=== PATIENT | female | born 1995 | race Caucasian/White ===

== ENCOUNTER → 2020-01-08 11:53 | Outpatient (CLI) | payer OTHER, MEDICAID, SELFPAY ==
[2020-01-08 13:29] LABS: HCG Quantitative /Beta subunit 19128 mIU/mL
== END ==
PROVIDERS: PCP Obstetrics & Gynecology; Referring Provider Obstetrics & Gynecology; Visit Provider Obstetrics & Gynecology
DX: O36.80X0 Pregnancy with inconclusive fetal viability, not applicable or unspecified (principal)
CPT/HCPCS: 36415; 84702

== ENCOUNTER → 2020-01-10 14:26 | Outpatient (CLI) | payer OTHER, MEDICAID, SELFPAY ==
[2020-01-10 15:51] LABS: HCG Quantitative /Beta subunit 27029 mIU/mL
== END ==
PROVIDERS: PCP Obstetrics & Gynecology; Referring Provider Obstetrics & Gynecology; Visit Provider Obstetrics & Gynecology
DX: O36.80X0 Pregnancy with inconclusive fetal viability, not applicable or unspecified (principal)
CPT/HCPCS: 36415; 84702

== ENCOUNTER → 2020-01-13 10:48 | Outpatient (CLI) | payer OTHER, MEDICAID, SELFPAY ==
--- NOTE | 2020-01-13 10:52 | DI.US.S_ITS ---
PROCEDURE: US OB <= 14 WEEKS FETUS INDICATIONS: DATES OUTSIDE/PRIOR DATING DATA: Last menstrual period (LMP): 11/23/19. LMP-based estimated date of delivery (NEGRO): 08/29/20. First dating scan (date and location): Postop chest, 01/08/20. Estimated date of delivery (NEGRO) from first dating scan: 08/29/20. TECHNIQUE: Real-time scanning was performed of the fetus and maternal pelvic organs, with image documentation. Endovaginal scanning was also performed to better visualize the fetus and maternal ovaries. COMPARISON: [facility], , OB <= 14 WEEKS FETUS, 01/08/2020, 11:38. FINDINGS: Embryo: A single live intrauterine is seen. The measured heart rate is 133 beats per minute. The crown-rump length measures 0.9 cm, corresponding to an estimated gestational age of 6 weeks 6 days. It is too early for detailed anatomic assessment. By visual inspection, the amount of amniotic fluid is within normal limits. No significant findings of subchorionic/perigestational hemorrhage are seen. Measurement variability in dating: +/- 4 weeks by LMP, +/- 7 days by mean sac diameter (use before 6 weeks gestation if crown-rump length not able to be measured), +/- 5 days by crown-rump length (up to 8 weeks 6 days gestation), +/- 7 days by crown-rump length (up to 13 weeks 6 days gestation). Maternal organs: Ovaries are not seen. Limited images through the kidneys demonstrate no hydronephrosis. IMPRESSION: A single live intrauterine is seen. No significant discrepancy is found between the estimated gestational age based on these images and the estimated gestational age based upon the given prior dating. Dictated by: Christiano Nichole M.D. on 01/13/2020 at 10:23 Approved by: Christiano Nichole M.D. on 01/13/2020 at 10:24
== END ==
PROVIDERS: Referring Provider Obstetrics & Gynecology; Visit Provider Obstetrics & Gynecology
DX: O36.80X0 Pregnancy with inconclusive fetal viability, not applicable or unspecified (principal); Z3A.01 Less than 8 weeks gestation of pregnancy
CPT/HCPCS: 76801; 76817

== ENCOUNTER → 2020-01-25 10:32 | Outpatient (CLI) | payer OTHER, MEDICAID, SELFPAY ==
[2020-01-25 15:18] LABS: Urine N gonorrhoeae NOT DETECTED
[2020-01-26 10:00] LABS: Urine Chlamydia DETECTED
== END ==
PROVIDERS: Visit Provider Obstetrics & Gynecology
DX: Z34.81 Encounter for supervision of other normal pregnancy, first trimester (principal); Z3A.09 9 weeks gestation of pregnancy
CPT/HCPCS: 87491; 87591

== ENCOUNTER → 2020-02-23 12:46 | Outpatient (CLI) | payer OTHER, MEDICAID, SELFPAY ==
[2020-02-23 13:53] LABS: Add Manual Diff / Slide Review NO; Basophils Absolute Auto 100 /uL (0-100); Basophils Percent Auto 0.6 % (0-2); Eosinophils Absolute Auto 200 /uL (0-450); Eosinophils Percent Auto 2.5 % (2-4); Hematocrit 37.3 % (36-46); Hemoglobin 13.3 g/dL (12.0-16.0); Lymphocytes Absolute Auto 2000 /uL (1100-4500); Mean Corpuscular HGB Conc 35.6 % (30-36); Mean Corpuscular Hemoglobin 32.7 PG (26-34); Monocytes Absolute Auto 400 /uL (0-900); Monocytes Percent Auto 4.6 % (3-14); Neutrophils Absolute Auto 6400 /uL (1500-7000); Neutrophils Percent Auto 70.3 % (50-75); Platelet Count 347 X10^3/uL (150-400); Red Blood Cell Count 4.05 X10^6/uL (4.0-5.2); Red Cell Distribution Width 12.7 % (11.6-14.8); White Blood Cell Count 9.2 X10^3/uL (4.5-11.0)
[2020-02-25 16:14] LABS: RPR Screen Non Reactive (Non Reactive); Varicella IgG Antibody 2973 index (Immune >165)
[2020-02-25 16:39] LABS: Hepatitis B Surface Antigen NEGATIVE s/c (NEGATIVE)
[2020-02-25 16:40] LABS: Rubella Antibody IgG 15.8 IU/mL (>15)
[2020-02-25 16:52] LABS: HIV 1 & 2 Ab/Ag 4th Gen Combo NEGATIVE (NEGATIVE); Hep C Virus Ab w/Reflex Quant NEGATIVE s/c (NEGATIVE)
== END ==
PROVIDERS: Referring Provider Obstetrics & Gynecology; Visit Provider Obstetrics & Gynecology
DX: O36.80X0 Pregnancy with inconclusive fetal viability, not applicable or unspecified (principal)
CPT/HCPCS: 36415; 80055; 86787; 86803; 86850; 86900; 86901; 87086; 87389

== ENCOUNTER 2020-03-15 10:47 | Emergency (ER) | payer OTHER, MEDICAID, SELFPAY ==
[2020-03-15 10:53] VITALS: BP 130/88; PULSE 75; RESP 15; TEMP 36.6; O2SAT 98; BMI 28.3
--- NOTE | 2020-03-15 11:15 | DI.US.S_ITS ---
PROCEDURE: US OB >= 14 WEEKS FETUS INDICATIONS: RUQ PAIN TECHNIQUE: Real-time scanning was performed of the fetus, with image documentation and biometric measurements. COMPARISON: [facility], , OB >= 14 WEEKS FETUS, 01/25/2020, 10:16. [facility], , OB <= 14 WEEKS FETUS, 01/13/2020, 11:01. FINDINGS: General: A single living intrauterine gestation is present. Presentation: Breech Placenta: Placental position is posterior without evidence of previa. Amniotic fluid index: 8.9 cm, normal range is 5-24 cm. heart rate: 149 beats per minute. Maternal cervical canal: 3.7 cm in length. biometrics: Biparietal diameter: 3.3 cm, 16 weeks 3 days Head circumference: 13.1 cm, 16 weeks 5 days Abdominal circumference: 10.6 cm, 16 weeks 4 days Femur length: 1.9 cm, 15 weeks 6 days Estimated gestational age from initial scan: 16 weeks 1 day Composite gestational age from present scan: 16 weeks 3 days Estimated weight and percentile: 151 g (51st percentile) Other: Please note that a formal anatomic survey was not performed. No gross anatomic abnormalities are evident on the provided images. Anatomic structures are not well seen related to small size of the fetus. The maternal adnexal regions are within normal limits. No adnexal cysts are evident. IMPRESSION: Single live intrauterine at 16 weeks 3 days is concordant with the clinical dates and has demonstrated appropriate interval growth. Dictated by: Oscar Villaseñor M.D. on 03/15/2020 at 11:37 Approved by: Oscar Villaseñor M.D. on 03/15/2020 at 11:39
--- NOTE | 2020-03-15 11:15 | DI.US.S_ITS ---
PROCEDURE: US ABDOMEN LIMITED INDICATIONS: RUQ PAIN TECHNIQUE: Real-time focused scanning was performed of the abdomen, with image documentation. COMPARISON: None. FINDINGS: Portions of the liver appear to be within normal limits. No focal liver lesions are identified. Scattered small nodular densities are identified along the wall of the gallbladder that demonstrate comet tail artifact. Some of these nodular densities are located along the dependent aspect of the gallbladder. No mobile stones are evident. No shadowing stones are evident. There is no intrahepatic or extrahepatic biliary dilatation. The common bile duct measures 5 mm in diameter. Overlying bowel gas obscures evaluation of the pancreas. The right kidney was not adequately evaluated more completely included. IMPRESSION: 1. No evidence of acute cholecystitis. 2. Possible non-shadowing gallstones versus sludge ball versus small polyps within the dependent aspect of the gallbladder. 3. Adenomyomatosis of the gallbladder. Dictated by: Oscar Villaseñor M.D. on 03/15/2020 at 11:35 Approved by: Oscar Villaseñor M.D. on 03/15/2020 at 11:37
[2020-03-15 11:25] LABS: Add Manual Diff / Slide Review NO; Basophils Absolute Auto 0 /uL (0-100); Basophils Percent Auto 0.2 % (0-2); Eosinophils Absolute Auto 200 /uL (0-450); Eosinophils Percent Auto 1.7 % (2-4); Hematocrit 36.2 % (36-46); Hemoglobin 12.9 g/dL (12.0-16.0); Lymphocytes Absolute Auto 1800 /uL (1100-4500); Lymphocytes Percent Auto 17.3 % (25-40); Mean Corpuscular HGB Conc 35.5 % (30-36); Mean Corpuscular Hemoglobin 32.9 PG (26-34); Mean Corpuscular Volume 92.7 fL (80-100); Monocytes Absolute Auto 500 /uL (0-900); Neutrophils Absolute Auto 8000 /uL (1500-7000); Neutrophils Percent Auto 75.8 % (50-75); Platelet Count 378 X10^3/uL (150-400); Red Cell Distribution Width 12.5 % (11.6-14.8); White Blood Cell Count 10.6 X10^3/uL (4.5-11.0)
[2020-03-15 11:32] LABS: Alanine Aminotransferase 13 IU/L (<35); Albumin Globulin Ratio 1.4 (1.0-2.8); Alkaline Phosphatase 41 U/L (38-126); Amylase 69 U/L (30-110); Aspartate Aminotransferase 20 IU/L (14-36); BUN Creatinine Ratio 12.2 (6-22); Bilirubin Total 0.3 mg/dL (0.2-1.3); Blood Urea Nitrogen 5 mg/dL (7-17); Calcium 9.4 mg/dL (8.4-10.2); Carbon Dioxide 21 mmol/L (22-32); Chloride 105 mmol/L (98-107); Estimated Glomerular Filt Rate > 60.0 mL/min (>60); Globulin 2.9 g/dL (1.7-4.1); Glucose 95 mg/dL (70-100); HEMOLYSIS < 15 (0-50); Lipase 40 U/L (23-300); Potassium 3.9 mmol/L (3.4-5.1); Sodium 134 mmol/L (137-145); Total Protein 6.9 g/dL (6.3-8.2)
--- NOTE | 2020-03-15 11:40 | ED_ITS ---
HPI - Abdominal Pain <PEREZ Duggan - Last Filed: 03/15/20 15:18> General Chief Complaint: Abdominal Pain Stated Complaint: sharp abdominal pains Time Seen by Provider: 03/15/20 11:05 Source: patient Mode of arrival: Ambulatory Limitations: no limitations History of Present Illness HPI narrative: The patient is a 25-year-old female former smoker approximately 16 weeks who presents with her spouse for chief complaint of waking up with abdominal pain today. She states that she felt fine last night, woke up with some epigastric abdominal pain, that radiates down over her stomach. She states she vomited multiple times. She has not taken anything to feel better. She denies any fevers cough or congestion. She denies any dysuria urgency or frequency or vaginal discharge. She spoke with her OB provider, Dr Szymanski who referred her to the emergency department for possible gallbladder evaluation. She did eat some fruit this morning. Related Data Home Medications Medication Instructions Recorded Confirmed prenat.vits,noel,[id number] 1 tab PO DAILY 01/08/20 01/08/20 Previous Rx's Medication Instructions Recorded ondansetron 4 mg PO Q6H PRN #20 tab 03/15/20 Allergies Allergy/AdvReac Type Severity Reaction Status Date / Time No Known Drug Allergies Allergy Unverified 01/19/20 11:09 Review of Systems <PEREZ Duggan - Last Filed: 03/15/20 15:18> Review of Systems Narrative: GENERAL: Denies chills, fatigue, malaise, fever, sweats. HEENT: Denies sinus pain, ear pain, sore throat, difficulty swallowing, dizziness. RESPIRATORY: Denies dyspnea, cough, wheezing, hemoptysis, sputum. CARDIOVASCULAR: Denies chest pain, palpitations, orthopnea, edema, GASTROINTESTINAL: See HPI : Denies dysuria, frequency, incontinence, hematuria, urinary retention. MUSCULOSKELETAL: denies weakness, joint pain, or bony pain SKIN: Denies rash, skin lesions, or other NEUROLOGIC: Denies weakness, headache, numbness, change in speech, confusion, seizures, incoordination. PSYCHIATRIC: No concerning psychosocial issues. 12 point review of systems is negative except for those stated above Patient History <PEREZ Duggan - Last Filed: 03/15/20 15:18> Medical History (Updated 03/15/20 @ 14:34 by PEREZ Duggan) (Acute) ADHD (Chronic) Anxiety (Chronic) Chlamydia (Acute) Depression (Acute) H/O being hospitalized (Acute ~2010) Surgical History (Updated 01/19/20 @ 11:54 by Dottie Dupont RN) H/O wisdom tooth extraction (Acute ~2014) S/P dilation and curettage (Acute ~2015) Family History (Updated 01/19/20 @ 11:49 by Dottie Dupont RN) Father Stroke Alcohol abuse Mother Cancer History of heart disease Hypertension Hyperlipidemia Mental health problem History of miscarriage Breast cancer Depression Anxiety Grandmother Stroke Grandfather Stomach cancer Grandfather Family estrangement Unknown whether patient has any health problems Grandmother Unknown whether patient has any health problems Family/Other Mental health problem Social History marital status: unmarried,living together household members: significant other pets and animals: Yes (Dog) education level: college (working on her Master's Degree: online currently) occupational status: unemployed current occupational exposures/hazards: No special david needs: No Smoking Status: Former smoker Tobacco: How many years used: 1 second hand exposure: No alcohol intake: former (pre- : rare) substance use type: does not use Smoking Status: Former smoker Substance Use Type: does not use Exam <PEREZ Duggan - Last Filed: 03/15/20 15:18> Narrative Exam Narrative: GENERAL: This is a well-nourished, well-developed patient, in no acute distress HEAD: Atraumatic. Normocephalic. No temporal or scalp tenderness. EYES: Pupils equal round and reactive. Extraocular motions intact. No scleral icterus. No injection or drainage. ENT: Nose without bleeding, purulent drainage or septal hematoma. Throat without erythema, tonsillar hypertrophy or exudate. Uvula midline. Airway patent. NECK: Trachea midline. No JVD or lymphadenopathy. Supple, nontender, no meningeal signs. CARDIOVASCULAR: Regular rate and rhythm RESPIRATORY: Clear to auscultation. Breath sounds equal bilaterally. No wheezes, rales, or rhonchi. No cough. No increased respiratory. No accessory muscle use. GASTROINTESTINAL: Abdomen soft, diffusely tender bilateral upper quadrants with no guarding, negative Weir sign, nondistended. No hepato-splenomegaly, or palpable masses. Active bowel sounds all 4 quadrants. EXTREMITIES: No clubbing, cyanosis, or edema. No joint tenderness, effusion, or edema noted. BACK: Nontender without deformity or crepitance. No flank tenderness. NEURO: AOx3. SKIN: No rash or erythema on visible skin Initial Vital Signs Initial Vital Signs: Vital Signs Temperature 97.9 F 03/15/20 10:53 Pulse Rate 75 03/15/20 10:53 Respiratory Rate 15 03/15/20 10:53 Blood Pressure 130/88 03/15/20 10:53 Pulse Oximetry 98 03/15/20 10:53 <Radha Singh DO - Last Filed: 03/15/20 19:22> Initial Vital Signs Initial Vital Signs: Vital Signs Temperature 97.9 F 03/15/20 10:53 Pulse Rate 75 03/15/20 10:53 Respiratory Rate 15 03/15/20 10:53 Blood Pressure 130/88 03/15/20 10:53 Pulse Oximetry 98 03/15/20 10:53 Course <PEREZ Duggan - Last Filed: 03/15/20 15:18> Orders Ordered: ED Orders 03/15/20 11:00 Amylase Stat Complete Blood Count AUTO DIFF Stat Comprehensive Metabolic Panel Stat HCG Quantitative /Beta subunit Stat Lipase Stat 03/15/20 11:15 US OB >= 14 weeks Fetus Stat US abdomen limited Stat 03/15/20 13:30 Urine Microscopic Stat Discontinued Medications Sodium Chloride (Normal Saline 0.9%) 500 mls @ 1,000 mls/hr IV BOLUS ONE Stop: 03/15/20 11:44 Last Infusion: 03/15/20 14:44 Dose: 0 mls/hr Documented by: Admin: 03/15/20 11:58 Dose: 1,000 mls/hr Documented by: DONA Ondansetron HCl (Zofran) 4 mg IV NOW ONE Stop: 03/15/20 11:16 Last Admin: 03/15/20 11:58 Dose: 4 mg Documented by: DONA Vital Signs Vital signs: Vital Signs - 8 hr 03/15/20 12:40 03/15/20 14:39 Pulse Rate 69 73 Respiratory Rate 17 14 Blood Pressure [Left Arm] 120/68 115/71 Pulse Oximetry 100 100 <Radha Singh DO - Last Filed: 03/15/20 19:22> Orders Ordered: ED Orders 03/15/20 11:00 Amylase Stat Complete Blood Count AUTO DIFF Stat Comprehensive Metabolic Panel Stat HCG Quantitative /Beta subunit Stat Lipase Stat 03/15/20 11:15 US OB >= 14 weeks Fetus Stat US abdomen limited Stat 03/15/20 13:30 Urine Microscopic Stat Discontinued Medications Sodium Chloride (Normal Saline 0.9%) 500 mls @ 1,000 mls/hr IV BOLUS ONE Stop: 03/15/20 11:44 Last Infusion: 03/15/20 14:44 Dose: 0 mls/hr Documented by: Admin: 03/15/20 11:58 Dose: 1,000 mls/hr Documented by: DONA Ondansetron HCl (Zofran) 4 mg IV NOW ONE Stop: 03/15/20 11:16 Last Admin: 03/15/20 11:58 Dose: 4 mg Documented by: DONA Vital Signs Vital signs: Vital Signs - 8 hr 03/15/20 12:40 03/15/20 14:39 Pulse Rate 69 73 Respiratory Rate 17 14 Blood Pressure [Left Arm] 120/68 115/71 Pulse Oximetry 100 100 MDM - Abdominal Pain <JOSE ANGEL Duggan - Last Filed: 03/15/20 15:18> Differential Diagnosis Differential diagnosis: Likely abdominal pain and constipation Lab Data Result diagrams: 03/15/20 11:00 03/15/20 11:00 Labs: Lab Results 03/15/20 03/15/20 03/15/20 Range/Units 11:00 11:00 11:00 WBC 10.6 (4.5-11.0) X10^3/uL RBC 3.90 L (4.0-5.2) X10^6/uL Hgb 12.9 (12.0-16.0) g/dL Hct 36.2 (36-46) % MCV 92.7 (80-100) fL MCH 32.9 (26-34) PG MCHC 35.5 (30-36) % RDW 12.5 (11.6-14.8) % Plt Count 378 (150-400) X10^3/uL Neut % (Auto) 75.8 H (50-75) % Lymph % (Auto) 17.3 L (25-40) % Schuyler % (Auto) 5.0 (3-14) % Eos % (Auto) 1.7 L (2-4) % Baso % (Auto) 0.2 (0-2) % Neut # (Auto) 8000 H (9739-2460) /uL Lymph # (Auto) 1800 (4981-7288) /uL Schuyler # (Auto) 500 (0-900) /uL Eos # (Auto) 200 (0-450) /uL Baso # (Auto) 0 (0-100) /uL Sodium 134 L (137-145) mmol/L Potassium 3.9 (3.4-5.1) mmol/L Chloride 105 (98-107) mmol/L Carbon Dioxide 21 L (22-32) mmol/L BUN 5 L (7-17) mg/dL Creatinine 0.41 L (0.52-1.04) mg/dL Estimated GFR > 60.0 (>60) mL/min BUN/Creatinine Ratio 12.2 (6-22) Glucose 95 (70-100) mg/dL Calcium 9.4 (8.4-10.2) mg/dL Total Bilirubin 0.3 (0.2-1.3) mg/dL AST 20 (14-36) IU/L ALT 13 (<35) IU/L Alkaline Phosphatase 41 (38-126) U/L Total Protein 6.9 (6.3-8.2) g/dL Albumin 4.0 (3.5-5.0) g/dL Globulin 2.9 (1.7-4.1) g/dL Albumin/Globulin Ratio 1.4 (1.0-2.8) Amylase 69 (30-110) U/L Lipase 40 (23-300) U/L HCG, Quant 26831 mIU/mL Urine RBC (0-5/HPF) Urine WBC (0-5/HPF) Urine Bacteria (None) Urine Mucus (Negative) Ur Culture Indicated? 03/15/20 Range/Units 13:30 WBC (4.5-11.0) X10^3/uL RBC (4.0-5.2) X10^6/uL Hgb (12.0-16.0) g/dL Hct (36-46) % MCV (80-100) fL MCH (26-34) PG MCHC (30-36) % RDW (11.6-14.8) % Plt Count (150-400) X10^3/uL Neut % (Auto) (50-75) % Lymph % (Auto) (25-40) % Schuyler % (Auto) (3-14) % Eos % (Auto) (2-4) % Baso % (Auto) (0-2) % Neut # (Auto) (6745-3503) /uL Lymph # (Auto) (6217-6681) /uL Schuyler # (Auto) (0-900) /uL Eos # (Auto) (0-450) /uL Baso # (Auto) (0-100) /uL Sodium (137-145) mmol/L Potassium (3.4-5.1) mmol/L Chloride (98-107) mmol/L Carbon Dioxide (22-32) mmol/L BUN (7-17) mg/dL Creatinine (0.52-1.04) mg/dL Estimated GFR (>60) mL/min BUN/Creatinine Ratio (6-22) Glucose (70-100) mg/dL Calcium (8.4-10.2) mg/dL Total Bilirubin (0.2-1.3) mg/dL AST (14-36) IU/L ALT (<35) IU/L Alkaline Phosphatase (38-126) U/L Total Protein (6.3-8.2) g/dL Albumin (3.5-5.0) g/dL Globulin (1.7-4.1) g/dL Albumin/Globulin Ratio (1.0-2.8) Amylase (30-110) U/L Lipase (23-300) U/L HCG, Quant mIU/mL Urine RBC None seen (0-5/HPF) Urine WBC None seen (0-5/HPF) Urine Bacteria Occasional (0-1) (None) Urine Mucus 2+ H (Negative) Ur Culture Indicated? Cult not indicated Point of care testing: Urine Dip Bedside Urine Glucose Negative Bedside Urine Bilirubin - Negative Bedside Urine Ketone ++ 40 Urine Specific Kitzmiller 1.025 Bedside Urine Occult Blood - Negative Bedside Urine pH 6.0 Bedside Urine Protein +/- 15 Bedside Urine Urobilinogen - Negative Bedside Urine Nitrite - Negative Bedside Urine Leukocytes - Negative Esterase Imaging Data US - OB: Radiologist's Impression: [address] [place] [id number] Ultrasound Report Signed Patient: DeeptiAiMR#: [id number] : 1995Acct:[id number] Age/Sex: 25 / FDate of Service: 03/15/20 Loc: ED Accession Number: [id number] Procedure: US OB >= 14 weeks Fetus Ordering Provider: Debra Lorenzo PROCEDURE: US OB >= 14 WEEKS FETUS INDICATIONS: RUQ PAIN TECHNIQUE: Real-time scanning was performed of the fetus, with image documentation and biometric measurements. COMPARISON: [facility], OB >= 14 WEEKS FETUS, 01/25/2020, 10:16. [facility] OB <= 14 WEEKS FETUS, 01/13/2020, 11:01. FINDINGS: General: A single living intrauterine gestation is present. Presentation: Breech Placenta: Placental position is posterior without evidence of previa. Amniotic fluid index: 8.9 cm, normal range is 5-24 cm. heart rate: 149 beats per minute. Maternal cervical canal: 3.7 cm in length. biometrics: Biparietal diameter: 3.3 cm, 16 weeks 3 days Head circumference: 13.1 cm, 16 weeks 5 days Abdominal circumference: 10.6 cm, 16 weeks 4 days Femur length: 1.9 cm, 15 weeks 6 days Estimated gestational age from initial scan: 16 weeks 1 day Composite gestational age from present scan: 16 weeks 3 days Estimated weight and percentile: 151 g (51st percentile) Other: Please note that a formal anatomic survey was not performed. No gross anatomic abnormalities are evident on the provided images. Anatomic structures are not well seen related to small size of the fetus. The maternal adnexal regions are within normal limits. No adnexal cysts are evident. IMPRESSION: Single live intrauterine at 16 weeks 3 days is concordant with the clinical dates and has demonstrated appropriate interval growth. Dictated by: Oscar Villaseñor M.D. on 03/15/2020 at 11:37 Approved by: Oscar Villaseñor M.D. on 03/15/2020 at 11:39 CT scan - abdomen/pelvis: My Impression: [address] [address] Ultrasound Report Signed Patient: Kavon Tatum#: [id number] : 1995Acct:[id number] Age/Sex: 25 / FDate of Service: 03/15/20 Loc: ED Accession Number: [id number] Procedure: US abdomen limited Ordering Provider: Debra Lorenzo PROCEDURE: US ABDOMEN LIMITED INDICATIONS: RUQ PAIN TECHNIQUE: Real-time focused scanning was performed of the abdomen, with image documentation. COMPARISON: None. FINDINGS: Portions of the liver appear to be within normal limits. No focal liver lesions are identified. Scattered small nodular densities are identified along the wall of the gallbladder that demonstrate comet tail artifact. Some of these nodular densities are located along the dependent aspect of the gallbladder. No mobile stones are evident. No shadowing stones are evident. There is no intrahepatic or extrahepatic biliary dilatation. The common bile duct measures 5 mm in diameter. Overlying bowel gas obscures evaluation of the pancreas. The right kidney was not adequately evaluated more completely included. IMPRESSION: 1. No evidence of acute cholecystitis. 2. Possible non-shadowing gallstones versus sludge ball versus small polyps within the dependent aspect of the gallbladder. 3. Adenomyomatosis of the gallbladder. Dictated by: Oscar Villaseñor M.D. on 03/15/2020 at 11:35 Approved by: Oscar Villaseñor M.D. on 03/15/2020 at 11:37 MDM Narrative Medical decision making narrative: The patient is a 25-year-old female 16 week who presents with a chief complaint of sudden onset of abdominal pain nausea vomiting this morning. Overall she feels much improved after her stay in the emergency department, is tolerating p.o. fluids. Her ultrasounds came back with no acute findings, though noted incidental adenomyomatosis of gallbladder. However she has no pain to palpation of right upper quadrant, no leukocytosis, urine has no signs of infection. Given that Dr. szymanski and the patient to the emergency department, went over the patient's results with her. Patient has been tolerating p.o. fluids request to go home with her significant other. I discussed at length coming back to the emergency department for any acute rima rns such as inability keep down fluids, abdominal pain with fever etcetera. Encouraged follow-up with PCP as well as Dr. szymanski. Patient has no questions or concerns upon discharge and states understanding of return precautions as well as follow-up care. <Radha Singh, DO - Last Filed: 03/15/20 19:22> Lab Data Labs: Lab Results 03/15/20 03/15/20 03/15/20 Range/Units 11:00 11:00 11:00 WBC 10.6 (4.5-11.0) X10^3/uL RBC 3.90 L (4.0-5.2) X10^6/uL Hgb 12.9 (12.0-16.0) g/dL Hct 36.2 (36-46) % MCV 92.7 (80-100) fL MCH 32.9 (26-34) PG MCHC 35.5 (30-36) % RDW 12.5 (11.6-14.8) % Plt Count 378 (150-400) X10^3/uL Neut % (Auto) 75.8 H (50-75) % Lymph % (Auto) 17.3 L (25-40) % Schuyler % (Auto) 5.0 (3-14) % Eos % (Auto) 1.7 L (2-4) % Baso % (Auto) 0.2 (0-2) % Neut # (Auto) 8000 H (6626-1712) /uL Lymph # (Auto) 1800 (5968-9014) /uL Schuyler # (Auto) 500 (0-900) /uL Eos # (Auto) 200 (0-450) /uL Baso # (Auto) 0 (0-100) /uL Sodium 134 L (137-145) mmol/L Potassium 3.9 (3.4-5.1) mmol/L Chloride 105 (98-107) mmol/L Carbon Dioxide 21 L (22-32) mmol/L BUN 5 L (7-17) mg/dL Creatinine 0.41 L (0.52-1.04) mg/dL Estimated GFR > 60.0 (>60) mL/min BUN/Creatinine Ratio 12.2 (6-22) Glucose 95 (70-100) mg/dL Calcium 9.4 (8.4-10.2) mg/dL Total Bilirubin 0.3 (0.2-1.3) mg/dL AST 20 (14-36) IU/L ALT 13 (<35) IU/L Alkaline Phosphatase 41 (38-126) U/L Total Protein 6.9 (6.3-8.2) g/dL Albumin 4.0 (3.5-5.0) g/dL Globulin 2.9 (1.7-4.1) g/dL Albumin/Globulin Ratio 1.4 (1.0-2.8) Amylase 69 (30-110) U/L Lipase 40 (23-300) U/L HCG, Quant 70601 mIU/mL Urine RBC (0-5/HPF) Urine WBC (0-5/HPF) Urine Bacteria (None) Urine Mucus (Negative) Ur Culture Indicated? 03/15/20 Range/Units 13:30 WBC (4.5-11.0) X10^3/uL RBC (4.0-5.2) X10^6/uL Hgb (12.0-16.0) g/dL Hct (36-46) % MCV (80-100) fL MCH (26-34) PG MCHC (30-36) % RDW (11.6-14.8) % Plt Count (150-400) X10^3/uL Neut % (Auto) (50-75) % Lymph % (Auto) (25-40) % Schuyler % (Auto) (3-14) % Eos % (Auto) (2-4) % Baso % (Auto) (0-2) % Neut # (Auto) (8391-1295) /uL Lymph # (Auto) (9382-6689) /uL Schuyler # (Auto) (0-900) /uL Eos # (Auto) (0-450) /uL Baso # (Auto) (0-100) /uL Sodium (137-145) mmol/L Potassium (3.4-5.1) mmol/L Chloride (98-107) mmol/L Carbon Dioxide (22-32) mmol/L BUN (7-17) mg/dL Creatinine (0.52-1.04) mg/dL Estimated GFR (>60) mL/min BUN/Creatinine Ratio (6-22) Glucose (70-100) mg/dL Calcium (8.4-10.2) mg/dL Total Bilirubin (0.2-1.3) mg/dL AST (14-36) IU/L ALT (<35) IU/L Alkaline Phosphatase (38-126) U/L Total Protein (6.3-8.2) g/dL Albumin (3.5-5.0) g/dL Globulin (1.7-4.1) g/dL Albumin/Globulin Ratio (1.0-2.8) Amylase (30-110) U/L Lipase (23-300) U/L HCG, Quant mIU/mL Urine RBC None seen (0-5/HPF) Urine WBC None seen (0-5/HPF) Urine Bacteria Occasional (0-1) (None) Urine Mucus 2+ H (Negative) Ur Culture Indicated? Cult not indicated Point of care testing: Urine Dip Bedside Urine Glucose Negative Bedside Urine Bilirubin - Negative Bedside Urine Ketone ++ 40 Urine Specific Kitzmiller 1.025 Bedside Urine Occult Blood - Negative Bedside Urine pH 6.0 Bedside Urine Protein +/- 15 Bedside Urine Urobilinogen - Negative Bedside Urine Nitrite - Negative Bedside Urine Leukocytes - Negative Esterase Discharge Plan Departure Patient Disposition: Home Clinical Impression: Abdominal pain affecting Nausea & vomiting Qualifiers: Vomiting type: unspecified Vomiting Intractability: non-intractable Qualified Code(s): R11.2 - Nausea with vomiting, unspecified Discharge Date/Time: 03/15/20 14:45 Instructions: DI for Abdominal Pain-Adult, DI for Nausea -- Adult Activity Restrictions/Additional Instructions: Thank you for trusting us with your care today As I discussed, your lab work came back well, your baby ultrasound came back well, and your abdominal ultrasound shows no evidence of acute gallbladder infection, but the possibility of polyps Please follow-up with primary care provider as well as OBGYN [facility] [place] Please come back to the emergency department for any acute concerns Prescriptions: New ondansetron 4 mg tablet,disintegrating 4 mg PO Q6H PRN (Reason: nausea and vomiting) Qty: 20 RF: 0 No Action prenat.vits,noel,gbx-[id number] Tablet 1 tab PO DAILY RF: 0 Referrals: Callie Szymanski MD [Primary Care Provider] - <Radha Singh DO - Last Filed: 03/15/20 19:22> Cosign ED Attending Cosignature Attestation: I was immediately available in the dep artment for consultation. Documentation has been reviewed. I agree with assessment and plan.
[2020-03-15] MEDS: SODIUM CHLORIDE 0.9% 500 ML 1000 ML IV (11:58)
[2020-03-15] MEDS: ONDANSETRON 4 MG/2 ML INJ IV (11:58)
[2020-03-15 12:12] LABS: HCG Quantitative /Beta subunit 17834 mIU/mL
[2020-03-15 12:40] VITALS: BP 120/68; PULSE 69; RESP 17; O2SAT 100
[2020-03-15 13:34] LABS: RBC Urine None Seen (0-5/HPF); WBC Urine None Seen (0-5/HPF)
[2020-03-15 13:53] LABS: Bacteria Urine Occasional (0-1)
[2020-03-15 13:54] LABS: Culture Indicated Urine Cult Not Indicated; Mucus Urine 2+ (Negative)
[2020-03-15 14:39] VITALS: BP 115/71; PULSE 73; RESP 14; O2SAT 100
== END 2020-03-15 14:45 | disposition home or self-care (01) ==
PROVIDERS: Emergency Provider Nurse Practitioner Family; PCP Obstetrics & Gynecology
DX: O26.892 Other specified pregnancy related conditions, second trimester (principal); R10.11 Right upper quadrant pain; R11.2 Nausea with vomiting, unspecified; Z3A.16 16 weeks gestation of pregnancy
CPT/HCPCS: 36415; 76705; 76811; 80053; 81003; 81015; 82150; 83690; 84702; 85025; 96361; 96374; 99283; J2405

== ENCOUNTER → 2020-03-28 15:54 | Outpatient (CLI) | payer OTHER, MEDICAID, SELFPAY ==
[2020-03-28 21:00] LABS: Urine N gonorrhoeae NOT DETECTED
[2020-03-28 21:13] LABS: Urine Chlamydia NOT DETECTED
== END ==
PROVIDERS: PCP Obstetrics & Gynecology; Visit Provider Obstetrics & Gynecology
DX: Z34.82 Encounter for supervision of other normal pregnancy, second trimester (principal); Z11.3 Encounter for screening for infections with a predominantly sexual mode of transmission; Z3A.18 18 weeks gestation of pregnancy
CPT/HCPCS: 87491; 87591

== ENCOUNTER → 2020-03-28 16:04 | Outpatient (CLI) | payer OTHER, MEDICAID, SELFPAY ==
[2020-03-30 20:43] LABS: AFP Value 35.2 ng/mL (.); Insulin Dep Diabetes No (.); OSBR Risk 1IN 10000 (.); Results Report (.); Test Results *Screen Negative* (.)
== END ==
PROVIDERS: PCP Obstetrics & Gynecology; Referring Provider Obstetrics & Gynecology; Visit Provider Obstetrics & Gynecology
DX: Z34.82 Encounter for supervision of other normal pregnancy, second trimester (principal); Z3A.18 18 weeks gestation of pregnancy; Z11.3 Encounter for screening for infections with a predominantly sexual mode of transmission
CPT/HCPCS: 36415; 82105; 87491; 87591

== ENCOUNTER → 2020-04-11 13:34 | Outpatient (CLI) | payer OTHER, MEDICAID, SELFPAY ==
--- NOTE | 2020-04-11 13:35 | DI.US.S_ITS ---
PROCEDURE: US OB >= 14 WEEKS FETUS INDICATIONS: ANATOMY OUTSIDE/PRIOR DATING DATA: Last menstrual period (LMP): 11/23/2019. LMP-based estimated date of delivery (NEGRO): 08/29/2020. First dating scan (date and location): 01/08/2020. Estimated date of delivery (NEGRO) from first dating scan: 08/29/2020. TECHNIQUE: Real-time scanning was performed of the fetus, with image documentation and biometric measurements. Endovaginal scanning: No COMPARISON: [facility], OB >= 14 WEEKS FETUS, 03/15/2020, 11:55. FINDINGS: General: A single living intrauterine gestation is present. Presentation: Vertex. Placenta: Placental position is posterior, without previa. Amniotic fluid index: 9.3 cm, normal range is 5-24 cm. heart rate: 144 beats per minute. Maternal cervical canal: 4.4 cm long. Normal lower limit is 2.5 cm. biometrics: Biparietal diameter: 20 weeks 6 days Head circumference: 20 weeks 3 days Abdominal circumference: 20 weeks 1 day Femur length: 19 weeks 4 days Estimated gestational age from initial scan: 20 weeks Composite gestational age from present scan: 20 weeks 2 days Estimated weight and percentile: 320 g.; 43rd percentile Measurement variability for biometric dating: +/- 7 days from 14 weeks to 15 weeks 6 days gestation, +/- 10 days from 16 weeks to 21 weeks 6 days gestation, +/- 2 weeks from 22 weeks to 27 weeks 6 days gestation, +/- 3 weeks for 28 weeks gestation or later. weight reference: 4500 g or EFW >90/95% is considered macrosomia or large for gestational age. EFW <10% is small for gestational age. EFW 5% or less is considered intra-uterine growth restriction. Anatomic survey: Neuro: Ventricles are non-dilated at less than 10 mm. Cisterna magna is normal at 3-11 mm. Cerebellum is normal in size and morphology. Nuchal skin fold: Normal at less than 6 mm between 14-21 weeks gestational age. Face: Nose and lips, facial profile are normal. Spine: No evidence for spina bifida. Heart: Suboptimally visualized. Diaphragm: Diaphragm is intact. Stomach: Left-sided stomach is present. Kidneys: No hydronephrosis. Normal is less than 5 mm in 2nd trimester, less than 7 mm in 3rd trimester. Cord: 3-vessel cord has orthotopic insertion. Bladder: Normal in size. Extremities: All 4 extremities identified. IMPRESSION: 1. [place] living intrauterine at 20 weeks 2 days based on today's ultrasound. This is concordant with the prior ultrasound. There is expected interval growth. 2. Normal placenta and amniotic fluid. 3. The heart is not well seen. Otherwise normal anatomic survey. -Recommend follow-up OB ultrasound. Dictated by: Abdullahi SHI Interpreted: Matty Mora MD on 04/11/2020 at 15:20 Approved by: Matty Mora M.D. on 04/11/2020 at 16:03
== END ==
PROVIDERS: PCP Obstetrics & Gynecology; Referring Provider Obstetrics & Gynecology; Visit Provider Obstetrics & Gynecology
DX: Z34.82 Encounter for supervision of other normal pregnancy, second trimester (principal); Z3A.20 20 weeks gestation of pregnancy
CPT/HCPCS: 76811

== ENCOUNTER → 2020-04-28 16:45 | Outpatient (CLI) | payer OTHER, MEDICAID, SELFPAY ==
--- NOTE | 2020-04-28 16:46 | DI.US.S_ITS ---
PROCEDURE: US OB FOLLOW UP INDICATIONS: HEART OUTSIDE/PRIOR DATING DATA: Last menstrual period (LMP): 11/23/2019. LMP-based estimated date of delivery (NEGRO): 08/29/2020 . First dating scan (date and location): 01/08/2020 . Estimated date of delivery (NEGRO) from first dating scan: 08/29/2020 . TECHNIQUE: Real-time scanning was performed of the fetus, with image documentation. COMPARISON: [facility], US, OB >= 14 WEEKS FETUS, 04/11/2020, 13:49. FINDINGS: A single living intrauterine gestation is present. Presentation: Breech. Placenta: Placental position is posterior , without previa. Amniotic fluid index: 10.9 cm, normal range is 5-24 cm. heart rate: 141 beats per minute. Maternal cervical canal: 3.5 cm long. Normal lower limit is 2.5 cm. Estimated gestational age from initial scan: 22 weeks 3 days. Normal appearance of the four-chamber heart and LVOT. RVOT not well seen secondary to position. IMPRESSION: 1. Single living IUP redemonstrated and the RVOT is again not well seen. Follow-up recommended. Dictated by: Abdullahi SHI Interpreted: Maxx Whitfield MD on 04/29/2020 at 8:59 Approved by: Maxx Whitfield M.D. on 04/29/2020 at 9:44
== END ==
PROVIDERS: PCP Obstetrics & Gynecology; Referring Provider Obstetrics & Gynecology; Visit Provider Obstetrics & Gynecology
DX: Z36.89 Encounter for other specified antenatal screening (principal); Z3A.22 22 weeks gestation of pregnancy
CPT/HCPCS: 76816

== ENCOUNTER 2020-05-22 10:21 | Outpatient (CLI) | payer OTHER, MEDICAID, SELFPAY ==
--- NOTE | 2020-05-22 10:43 | P.TNLD_ITS ---
Visit Information Visit Information Date of evaluation: 05/22/20 Primary OB Provider: Callie Luciano On-call OB Provider: Shanta Chen Reason for Evaluation: Yes non-stress test non-stress test reason: decreased movement Comments/Additional reasons for admission: 25yo at 25w6d here for NST due to decreased movement. Has not felt baby move regularly all day yesterday. Last night rested for kick counts and felt 3 kicks. This morning, didn't feel any, even with sugar intake. [facility] Medical History (Updated 05/22/20 @ 10:44 by Shanta Chen MD) (Acute) ADHD (Chronic) Anxiety (Chronic) Chlamydia (Acute) Depression (Acute) H/O being hospitalized (Acute ~2010) Surgical History (Updated 01/19/20 @ 11:54 by Dottie Dupont RN) H/O wisdom tooth extraction (Acute ~2014) S/P dilation and curettage (Acute ~2015) Family History (Updated 01/19/20 @ 11:49 by Dottie Dupont, ROSE) Father Stroke Alcohol abuse Mother Cancer History of heart disease Hypertension Hyperlipidemia Mental health problem History of miscarriage Breast cancer Depression Anxiety Grandmother Stroke Grandfather Stomach cancer Grandfather Family estrangement Unknown whether patient has any health problems Grandmother Unknown whether patient has any health problems Family/Other Mental health problem Social History marital status: unmarried,living together household members: significant other pets and animals: Yes (Dog) education level: college (working on her Master's Degree: online currently) occupational status: unemployed current occupational exposures/hazards: No special david needs: No Smoking Status: Former smoker Tobacco: How many years used: 1 second hand exposure: No alcohol intake: former (pre- : rare) substance use type: does not use Evaluation Evaluation Baseline heart rate: 140 Variability: Moderate (11-25) monitor accelerations: Present (appropriate for gestation) monitor decelerations: Absent Diagnosis, Plan/Disposition Final Diagnosis (1) Decreased movement: Status: Acute Plan/Disposition Plan: 25yo at 25w6d here for NST due to decreased movement. NST reactive. Stable for d/c home. F/U with Dr Luciano tomorrow. OB Disposition: home
== END 2020-05-22 10:35 | disposition home or self-care (01) ==
LOC: LABOR 11:28 → OB 05-23 12:28
PROVIDERS: PCP Obstetrics & Gynecology; Referring Provider Obstetrics & Gynecology; Visit Provider Family Medicine
DX: O36.8120 Decreased fetal movements, second trimester, not applicable or unspecified (principal); Z3A.25 25 weeks gestation of pregnancy
CPT/HCPCS: 59025; G0378; G0379

== ENCOUNTER → 2020-06-03 15:35 | Outpatient (CLI) | payer OTHER, MEDICAID, SELFPAY ==
--- NOTE | 2020-06-03 15:37 | DI.US.S_ITS ---
PROCEDURE: US OB FOLLOW UP INDICATIONS: F/U heart OUTSIDE/PRIOR DATING DATA: Last menstrual period (LMP): 11/23/19. LMP-based estimated date of delivery (NEGRO): 08/29/20 First dating scan (date and location): 01/08/20 . Estimated date of delivery (NEGRO) from first dating scan: 08/29/20 . TECHNIQUE: Real-time scanning was performed of the fetus, with image documentation. Endovaginal scanning: Not performed COMPARISON: [facility], OB >= 14 WEEKS FETUS, 04/11/2020, 13:49. [facility] OB FOLLOW UP, 04/28/2020, 17:21. FINDINGS: A single living intrauterine gestation is present. Presentation: Vertex. Placenta: Placental position is posterior , without previa. Amniotic fluid index: 12.8 cm, normal range is 5-24 cm. heart rate: 157 beats per minute. Maternal cervical canal: 4.6 cm long. Normal lower limit is 2.5 cm. Estimated gestational age from initial scan: 27 weeks 4 days. Normal appearance of the four-chamber heart and ventricular outflow tracts. IMPRESSION: Single living intrauterine fetus in vertex presentation Normal appearance of the four-chamber heart and ventricular outflow tracts. Dictated by: Jamison Haji M.D. on 06/03/2020 at 17:00 Approved by: Jamison Haji M.D. on 06/03/2020 at 17:03
== END ==
PROVIDERS: PCP Obstetrics & Gynecology; Referring Provider Obstetrics & Gynecology; Visit Provider Obstetrics & Gynecology
DX: Z36.2 Encounter for other antenatal screening follow-up; Z3A.27 27 weeks gestation of pregnancy
CPT/HCPCS: 76816

== ENCOUNTER → 2020-06-20 13:59 | Outpatient (CLI) | payer OTHER, MEDICAID, SELFPAY ==
[2020-06-20 16:25] LABS: Hematocrit 36.8 % (36-46); Hemoglobin 12.6 g/dL (12.0-16.0)
[2020-06-20 16:37] LABS: GTT (PREG) 1 Hour PP 50gm Dose 141 mg/dL (76-139)
== END ==
PROVIDERS: PCP Obstetrics & Gynecology; Referring Provider Obstetrics & Gynecology; Visit Provider Obstetrics & Gynecology
DX: Z34.82 Encounter for supervision of other normal pregnancy, second trimester (principal); Z3A.26 26 weeks gestation of pregnancy
CPT/HCPCS: 36415; 82950; 85014; 85018

== ENCOUNTER → 2020-07-01 08:47 | Outpatient (CLI) | payer OTHER, MEDICAID, SELFPAY ==
[2020-07-01 10:12] LABS: Glucose Fasting 83 mg/dL (70-100)
[2020-07-01 11:46] LABS: Glucose 1 Hour 181 mg/dL (70-170)
[2020-07-01 12:34] LABS: Glucose Tol Interpretation INTERPRETATION
[2020-07-01 13:57] LABS: Glucose 3 Hour 98 mg/dL (70-115)
[2020-07-01 14:03] LABS: Glucose 2 Hour 126 mg/dL (70-140)
== END ==
PROVIDERS: Referring Provider Obstetrics & Gynecology; Visit Provider Obstetrics & Gynecology
DX: R73.09 Other abnormal glucose (principal)
CPT/HCPCS: 36415; 82951; 82952

== ENCOUNTER → 2020-08-04 12:19 | Outpatient (CLI) | payer OTHER, MEDICAID, SELFPAY ==
[2020-08-05 20:04] LABS: Strep Grp B PCR POS for Grp B Strep
== END ==
PROVIDERS: Visit Provider Obstetrics & Gynecology
DX: Z34.03 Encounter for supervision of normal first pregnancy, third trimester (principal); Z3A.36 36 weeks gestation of pregnancy
CPT/HCPCS: 87653

== ENCOUNTER 2020-08-12 16:22 | Outpatient (CLI) | payer OTHER, MEDICAID, SELFPAY ==
[2020-08-12 16:55] LABS: Add Manual Diff / Slide Review NO; Basophils Absolute Auto 0 /uL (0-100); Basophils Percent Auto 0.3 % (0-2); Eosinophils Absolute Auto 200 /uL (0-450); Eosinophils Percent Auto 1.7 % (2-4); Hematocrit 37.7 % (36-46); Hemoglobin 12.9 g/dL (12.0-16.0); Lymphocytes Absolute Auto 2000 /uL (1100-4500); Lymphocytes Percent Auto 19.9 % (25-40); Mean Corpuscular HGB Conc 34.2 % (30-36); Mean Corpuscular Hemoglobin 31.9 PG (26-34); Mean Corpuscular Volume 93.3 fL (80-100); Monocytes Absolute Auto 500 /uL (0-900); Monocytes Percent Auto 5.4 % (3-14); Neutrophils Absolute Auto 7400 /uL (1500-7000); Neutrophils Percent Auto 72.7 % (50-75); Platelet Count 318 X10^3/uL (150-400); Red Blood Cell Count 4.04 X10^6/uL (4.0-5.2); Red Cell Distribution Width 13.3 % (11.6-14.8); White Blood Cell Count 10.2 X10^3/uL (4.5-11.0)
[2020-08-12 17:10] LABS: Creatinine Urine Random 26.4 mg/dL; Protein (Total) Urine Random 14 mg/dL (0-12); Protein Creatinine Ratio Urine 0.53 GRAM/24H
[2020-08-12 17:16] LABS: Aspartate Aminotransferase 24 IU/L (14-36); BUN Creatinine Ratio 17.5 (6-22); Blood Urea Nitrogen 7 mg/dL (7-17); Estimated Glomerular Filt Rate > 60.0 mL/min (>60); Uric Acid 4.7 mg/dL (2.5-6.2)
--- NOTE | 2020-08-12 17:55 | P.TNLD_ITS ---
Visit Information Visit Information Date of evaluation: 08/12/20 Primary OB Provider: Callie Luciano Reason for Evaluation: Yes non-stress test Comments/Additional reasons for admission: This patient is a 25yo @37+4 presenting from clinic for evaluation for PIH. Patient denies MERCEDES, visual changes, SOB, RUQ pain, or any obstetrical complaints, has had mild hand swelling for several weeks. Otherwise uncomplicated , scheduled for primary CS on 08/24. Vital Signs Vital Signs: 129-142/88-97, HR 90s-100s PFSH Medical History ADHD Anxiety Chlamydia Depression H/O being hospitalized (~2010) Surgical History H/O wisdom tooth extraction (~2014) S/P dilation and curettage (~2015) Family History Father Stroke Alcohol abuse Mother Cancer History of heart disease Hypertension Hyperlipidemia Mental health problem History of miscarriage Breast cancer Depression Anxiety Grandmother Stroke Grandfather Stomach cancer Grandfather Family estrangement Unknown whether patient has any health problems Grandmother Unknown whether patient has any health problems Family/Other Mental health problem Social History marital status: unmarried,living together household members: significant other pets and animals: Yes (Dog) education level: college (working on her Master's Degree: online currently) occupational status: unemployed current occupational exposures/hazards: No special david needs: No Smoking Status: Former smoker Tobacco: How many years used: 1 second hand exposure: No alcohol intake: former (pre- : rare) substance use type: does not use Review of Systems Constitutional Constitutional: Reports system reviewed and no additional complaints, except as documented Cardiovascular Cardiovascular: Reports as per HPI Musculoskeletal Musculoskeletal: Reports as per HPI Neurologic Neurologic: Reports as per HPI Exam Narrative Exam Narrative: Resting comfortably in bed, well appearing Objective Labs Result Diagrams: 08/12/20 16:45 08/12/20 16:45 Labs: Laboratory Results - last 24 hr 08/12/20 08/12/20 08/12/20 16:15 16:45 16:45 WBC 10.2 RBC 4.04 Hgb 12.9 Hct 37.7 MCV 93.3 MCH 31.9 MCHC 34.2 RDW 13.3 Plt Count 318 Neut % (Auto) 72.7 Lymph % (Auto) 19.9 L [place] % (Auto) 5.4 Eos % (Auto) 1.7 L Baso % (Auto) 0.3 Neut # (Auto) 7400 H Lymph # (Auto) 2000 [place] # (Auto) 500 Eos # (Auto) 200 Baso # (Auto) 0 BUN 7 Creatinine 0.40 L Estimated GFR > 60.0 BUN/Creatinine Ratio 17.5 Uric Acid 4.7 AST 24 U Random Total Protein 14 H Urine Creatinine 26.4 Protein/Creatinin Ratio 0.53 Evaluation Evaluation Baseline heart rate: 135 Variability: Moderate (11-25) monitor accelerations: Present monitor decelerations: Absent Laboratory results: Laboratory Tests 08/12/20 08/12/20 08/12/20 16:15 16:45 16:45 WBC 10.2 RBC 4.04 Hgb 12.9 Hct 37.7 MCV 93.3 MCH 31.9 MCHC 34.2 RDW 13.3 Plt Count 318 Neut % (Auto) 72.7 Lymph % (Auto) 19.9 L [place] % (Auto) 5.4 Eos % (Auto) 1.7 L Baso % (Auto) 0.3 Neut # (Auto) 7400 H Lymph # (Auto) 2000 [place] # (Auto) 500 Eos # (Auto) 200 Baso # (Auto) 0 BUN 7 Creatinine 0.40 L Estimated GFR > 60.0 BUN/Creatinine Ratio 17.5 Uric Acid 4.7 AST 24 U Random Total Protein 14 H Urine Creatinine 26.4 Protein/Creatinin Ratio 0.53 Comments: Bedside WESLEY 10.6cm Diagnosis, Plan/Disposition Plan/Disposition Plan: This patient has a presentation suspicious for preeclampsia without severe features, with intermittent new onset hypertension and proteinuria. testing is reassuring and the patient is asymptomatic, and after assessment of labor floor and OR conditions and discussion with the patient, the patient's planned primary section was moved to Saturday, 08/15. The patient was started on labetalol 100mg BID, plans to purchase a home BP cuff for home monitoring, will return tomorrow for NST, repeat preeclampsia labs, and serial assessment of blood pressures. Precautions for return and the risk of progression to preeclampsia with severe features or eclampsia were discussed wit h the patient and her partner, who vocalized understanding. OB Disposition: home
== END 2020-08-12 17:35 | disposition home or self-care (01) ==
LOC: LABOR 17:55 → OB 08-15 10:01
PROVIDERS: Referring Provider Obstetrics & Gynecology; Visit Provider Obstetrics & Gynecology
DX: O13.3 Gestational [pregnancy-induced] hypertension without significant proteinuria, third trimester (principal); O12.13 Gestational proteinuria, third trimester; Z3A.37 37 weeks gestation of pregnancy
CPT/HCPCS: 36415; 59025; 59050; 76815; 82570; 84156; 84450; 84550; 85025; G0378; G0379

== ENCOUNTER 2020-08-13 12:00 | Outpatient (CLI) | payer OTHER, MEDICAID, SELFPAY ==
[2020-08-13 12:38] LABS: Add Manual Diff / Slide Review NO; Basophils Absolute Auto 0 /uL (0-100); Basophils Percent Auto 0.4 % (0-2); Eosinophils Absolute Auto 200 /uL (0-450); Eosinophils Percent Auto 1.8 % (2-4); Hematocrit 37.2 % (36-46); Hemoglobin 12.6 g/dL (12.0-16.0); Lymphocytes Absolute Auto 2100 /uL (1100-4500); Mean Corpuscular HGB Conc 33.8 % (30-36); Mean Corpuscular Hemoglobin 31.7 PG (26-34); Mean Corpuscular Volume 93.7 fL (80-100); Monocytes Absolute Auto 700 /uL (0-900); Monocytes Percent Auto 6.1 % (3-14); Neutrophils Absolute Auto 8100 /uL (1500-7000); Neutrophils Percent Auto 72.7 % (50-75); Platelet Count 318 X10^3/uL (150-400); Red Blood Cell Count 3.97 X10^6/uL (4.0-5.2); Red Cell Distribution Width 13.3 % (11.6-14.8); White Blood Cell Count 11.2 X10^3/uL (4.5-11.0)
[2020-08-13 12:49] LABS: Aspartate Aminotransferase 25 IU/L (14-36); BUN Creatinine Ratio 20.5 (6-22); Blood Urea Nitrogen 9 mg/dL (7-17); Estimated Glomerular Filt Rate > 60.0 mL/min (>60); Uric Acid 5.1 mg/dL (2.5-6.2)
[2020-08-13 12:54] LABS: Protein (Total) Urine Random 11 mg/dL (0-12)
--- NOTE | 2020-08-13 12:55 | PM.OBTRLD ---
Visit Information Visit Information Date of evaluation: 08/13/20 Primary OB Provider: Callie Luciano On-call OB Provider: Carolina Blackburn Reason for Evaluation: Yes non-stress test non-stress test reason: hypertension/pre-eclampsia Vital Signs Vital Signs: BP 124/87 -135/96, P90 PFSH Medical History ADHD Anxiety Chlamydia Depression H/O being hospitalized (~2010) Surgical History H/O wisdom tooth extraction (~2014) S/P dilation and curettage (~2015) Family History Father Stroke Alcohol abuse Mother Cancer History of heart disease Hypertension Hyperlipidemia Mental health problem History of miscarriage Breast cancer Depression Anxiety Grandmother Stroke Grandfather Stomach cancer Grandfather Family estrangement Unknown whether patient has any health problems Grandmother Unknown whether patient has any health problems Family/Other Mental health problem Social History marital status: unmarried,living together household members: significant other pets and animals: Yes (Dog) education level: college (working on her Master's Degree: online currently) occupational status: unemployed current occupational exposures/hazards: No special david needs: No Smoking Status: Former smoker Tobacco: How many years used: 1 second hand exposure: No alcohol intake: former (pre- : rare) substance use type: does not use Review of Systems Review of Systems Narrative: patient denies headaches, scotomata, epigastric pain. Good movement. No leakage of fluid. No regular contractions. ROS: Yes All systems reviewed with the patient and are negative except as otherwise documented Objective Labs Result Diagrams: 08/13/20 12:25 08/13/20 12:25 Labs: Laboratory Results - last 24 hr 08/13/20 08/13/20 08/13/20 12:25 12:25 12:25 WBC 11.2 H RBC 3.97 L Hgb 12.6 Hct 37.2 MCV 93.7 MCH 31.7 MCHC 33.8 RDW 13.3 Plt Count 318 Neut % (Auto) 72.7 Lymph % (Auto) 19.0 L [place] % (Auto) 6.1 Eos % (Auto) 1.8 L Baso % (Auto) 0.4 Neut # (Auto) 8100 H Lymph # (Auto) 2100 [place] # (Auto) 700 Eos # (Auto) 200 Baso # (Auto) 0 BUN 9 Creatinine 0.44 L Estimated GFR > 60.0 BUN/Creatinine Ratio 20.5 Uric Acid 5.1 AST 25 Ur Random Microalbumin Cancelled U Random Total Protein 11 Microalb/Creat Ratio Cancelled Evaluation Evaluation Baseline heart rate: 130 Variability: Moderate (11-25) monitor accelerations: Present monitor decelerations: Absent Category of Tracing: Reactive Laboratory results: Laboratory Tests 08/13/20 08/13/20 08/13/20 12:25 12:25 12:25 WBC 11.2 H RBC 3.97 L Hgb 12.6 Hct 37.2 MCV 93.7 MCH 31.7 MCHC 33.8 RDW 13.3 Plt Count 318 Neut % (Auto) 72.7 Lymph % (Auto) 19.0 L [place] % (Auto) 6.1 Eos % (Auto) 1.8 L Baso % (Auto) 0.4 Neut # (Auto) 8100 H Lymph # (Auto) 2100 [place] # (Auto) 700 Eos # (Auto) 200 Baso # (Auto) 0 BUN 9 Creatinine 0.44 L Estimated GFR > 60.0 BUN/Creatinine Ratio 20.5 Uric Acid 5.1 AST 25 Ur Random Microalbumin Cancelled U Random Total Protein 11 Microalb/Creat Ratio Cancelled Diagnosis, Plan/Disposition Final Diagnosis (1) Hypertension affecting in third trimester: Status: Acute (2) 37 weeks gestation of : Status: Acute Plan/Disposition Plan: Patient who has some elevated blood pressures but her labs for preeclampsia are negative and she has no signs or symptoms of preeclampsia. Patient is scheduled for in 2 days. OB Disposition: home
[2020-08-13 12:58] LABS: Creatinine Urine Random 48.5 mg/dL; Protein Creatinine Ratio Urine 0.22 GRAM/24H
== END 2020-08-13 13:10 | disposition home or self-care (01) ==
LOC: OB 08-15 10:01
PROVIDERS: Referring Provider Specialist; Visit Provider Specialist
DX: O13.3 Gestational [pregnancy-induced] hypertension without significant proteinuria, third trimester (principal); Z3A.37 37 weeks gestation of pregnancy
CPT/HCPCS: 59025; 82570; 84156; 84450; 84550; 85025; G0378; G0379

== ENCOUNTER 2020-08-15 11:57 | Inpatient (IN) | payer OTHER, MEDICAID, SELFPAY ==
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
[2020-08-15 12:53] LABS: Add Manual Diff / Slide Review NO; Basophils Absolute Auto 100 /uL (0-100); Basophils Percent Auto 0.8 % (0-2); Eosinophils Absolute Auto 200 /uL (0-450); Hematocrit 37.9 % (36-46); Hemoglobin 12.9 g/dL (12.0-16.0); Lymphocytes Absolute Auto 2200 /uL (1100-4500); Lymphocytes Percent Auto 18.4 % (25-40); Mean Corpuscular Hemoglobin 31.9 PG (26-34); Mean Corpuscular Volume 93.8 fL (80-100); Monocytes Absolute Auto 600 /uL (0-900); Monocytes Percent Auto 5.3 % (3-14); Neutrophils Absolute Auto 8900 /uL (1500-7000); Neutrophils Percent Auto 73.5 % (50-75); Platelet Count 319 X10^3/uL (150-400); Red Blood Cell Count 4.04 X10^6/uL (4.0-5.2); Red Cell Distribution Width 13.4 % (11.6-14.8); White Blood Cell Count 12.1 X10^3/uL (4.5-11.0)
[2020-08-15 12:57] LABS: COVID19 -Nasal RAPID Negative (Negative)
[2020-08-15 13:06] LABS: Alanine Aminotransferase 15 IU/L (<35); Albumin 3.6 g/dL (3.5-5.0); Albumin Globulin Ratio 1.3 (1.0-2.8); Alkaline Phosphatase 124 U/L (38-126); Aspartate Aminotransferase 25 IU/L (14-36); BUN Creatinine Ratio 19.5 (6-22); Bilirubin Total 0.4 mg/dL (0.2-1.3); Blood Urea Nitrogen 8 mg/dL (7-17); Calcium 9.5 mg/dL (8.4-10.2); Carbon Dioxide 19 mmol/L (22-32); Chloride 107 mmol/L (98-107); Estimated Glomerular Filt Rate > 60.0 mL/min (>60); Globulin 2.8 g/dL (1.7-4.1); Glucose 85 mg/dL (70-100); HEMOLYSIS < 15 (0-50); Lactate Dehydrogenase 426 U/L (313-618); Potassium 4.1 mmol/L (3.4-5.1); Sodium 133 mmol/L (137-145); Total Protein 6.4 g/dL (6.3-8.2); Uric Acid 5.3 mg/dL (2.5-6.2)
[2020-08-15 13:09] VITALS: BP 112/83
[2020-08-15] MEDS: LACTATED RINGERS 1,000 ML 999 ML IV ×3 (13:11→16:16)
--- NOTE | 2020-08-15 14:13 | PM.PREOP ---
Pre-operative Note COVID-19 COVID-19 status: Negative Result date/Date tested (Pos, Neg/Pending): 08/15/20 Interval Note History & Physical reviewed/Exam performed by Physician: Yes Changes to H&P: No
[2020-08-15] MEDS: CEFAZOLIN 2 GM/100 ML FROZ.PIGGY IV (15:14)
--- NOTE | 2020-08-15 15:22 | SUR.OPER ---
Supine on Padded OR bed, head on pillow, safety belt at thigh, arms secured on padded arm boards at <90 degrees abduction. Bump under right buttock. Legs uncrossed with pillow under knees, gel pad to heels, tape over blanket to lower legs.
--- NOTE | 2020-08-15 15:55 | SUR.OPER ---
viable baby boy born at 1545, placenta delivered at 1550, 7/9. Cord blood and placenta given to OB RN
[2020-08-15 16:31] VITALS: BP 124/78; PULSE 89; RESP 18; TEMP 36.2; O2SAT 100
--- NOTE | 2020-08-15 16:33 | PM.OP.1 ---
Operative Date/Time/Diagnoses Date of procedure: 08/15/20 Time of procedure: 19:59 Pre-op diagnosis: preeclampsia without severe features, desire for elective section Post-op diagnosis: same Procedure & Clinicians Procedure: primary section Same procedure as scheduled: Yes Surgeon: Callie Luciano Traffic Superintendent: Lynda Maradiaga Anesthesia Type: Spinal Operative Notes Findings: Male in cephalic presentation, apgars 7+9, weight 7#2. Normal uterus, tubes, ovaries. Closure Type: primary Applied: catheter Estimated Blood Loss (mL): 500 Procedure in detail: EBL: 500 Fluids: 1000ccs UOP: 75ccs clear yellow urine Procedures: The patient was taken to the operating room where spinal anesthesia was placed and found to be adequate. She was prepped and draped in the normal sterile fashion in the dorsal supine position with a leftward tilt. A Pfannenstiel skin incision was made with a scalpel and carried through to the underlying layer of fascia. The fascia was incised in the midline and the incision extended laterally with Guzman scissors. The superior aspect of this incision was grasped with Otto clamps, elevated, and the underlying rectus muscles dissected off bluntly and with the curved Guzman scissors. Attention was then turned to the inferior aspect of this incision which, in a similar fashion, was grasped, tented up with the Otto clamps, and the rectus muscles dissected off bluntly and with the curved Guzman scissors. The rectus muscles were then in the midline, and the peritoneum identified, tented up, and entered sharply with Metzenbaum scissors. The peritoneal incision was extended superiorly and inferiorly with good visualization of the bladder. The bladder blade was inserted and the vesicouterine peritoneum identified, grasped with pickups, and entered sharply with the Metzenbaum scissors. This incision was extended laterally, and the bladder flap created digitally. The bladder blade was then reinserted and the lower uterine segment incised in transverse fashion with the scalpel. The uterine incision was bluntly extended laterally. The bladder blade was removed, and the infant's head delivered atraumatically with assistance of a vacuum. After 30 seconds of delayed cord clamping, the cord was clamped and cut. The nose and mouth were suctioned as needed with a bulb syringe, and the was handed off to awaiting pediatricians. The placenta was then removed spontaneously, and the uterus was exteriorized and cleared of all clots and debris. The uterine incision was repaired with 1-0 chromic in a running, locked fashion and a 2nd layer of the same suture was used to obtain excellent hemostasis. The uterus was returned to the abdomen, and the gutters were cleared of all clots and debris. The bladder flap was closed with 2-0 Vicryl in a running fashion, the peritoneum was closed with 3-0 Vicryl, and the fascia reapproximated with 0 Vicryl in a running fashion. The subcutaneous layer was placed with 3 0 Vicryl in an interrupted fashion and the skin was closed with 4-0 biosyn in a running fashion. The patient tolerated the procedure well and sponge lap and needle counts were correct x2. 2 g of Ancef were given at commencement of the case. The patient was taken to the recovery room in stable condition. Dr. Maradiaga was present throughout the case and her assistance was essential for delivery of the and assistance with repair of the various layers and management uterine tone. Complications: none Post-operative Condition: stable Disposition: PACU Plan for aftercare: Routine postop care
[2020-08-15 16:36] VITALS: BP 117/79; PULSE 82; RESP 22; O2SAT 100
[2020-08-15 16:51] VITALS: BP 120/76; PULSE 83; RESP 16; TEMP 36.2; O2SAT 100
[2020-08-15] MEDS: KETOROLAC 30 MG/ML VIAL IV ×2 (16:53→23:02)
[2020-08-15] MEDS: ONDANSETRON 4 MG/2 ML INJ IV (16:54)
[2020-08-16] MEDS: OXYCODONE IR 10 MG TABLET PO ×2 (02:06→17:33)
[2020-08-16] MEDS: KETOROLAC 30 MG/ML VIAL IV ×2 (05:10→10:53)
[2020-08-16 06:09] LABS: Add Manual Diff / Slide Review NO; Basophils Absolute Auto 100 /uL (0-100); Basophils Percent Auto 0.5 % (0-2); Eosinophils Absolute Auto 200 /uL (0-450); Eosinophils Percent Auto 1.7 % (2-4); Hematocrit 29.4 % (36-46); Lymphocytes Absolute Auto 2500 /uL (1100-4500); Mean Corpuscular HGB Conc 34.1 % (30-36); Mean Corpuscular Hemoglobin 32.2 PG (26-34); Mean Corpuscular Volume 94.3 fL (80-100); Monocytes Absolute Auto 800 /uL (0-900); Neutrophils Absolute Auto 9000 /uL (1500-7000); Neutrophils Percent Auto 71.8 % (50-75); Platelet Count 285 X10^3/uL (150-400); Red Blood Cell Count 3.12 X10^6/uL (4.0-5.2); Red Cell Distribution Width 13.4 % (11.6-14.8); White Blood Cell Count 12.5 X10^3/uL (4.5-11.0)
[2020-08-16 06:18] LABS: Alanine Aminotransferase 13 IU/L (<35); Albumin 2.8 g/dL (3.5-5.0); Albumin Globulin Ratio 1.1 (1.0-2.8); Alkaline Phosphatase 81 U/L (38-126); Aspartate Aminotransferase 25 IU/L (14-36); BUN Creatinine Ratio 14.1 (6-22); Bilirubin Total 0.4 mg/dL (0.2-1.3); Blood Urea Nitrogen 9 mg/dL (7-17); Calcium 8.6 mg/dL (8.4-10.2); Carbon Dioxide 26 mmol/L (22-32); Chloride 104 mmol/L (98-107); Estimated Glomerular Filt Rate > 60.0 mL/min (>60); Globulin 2.5 g/dL (1.7-4.1); Glucose 93 mg/dL (70-100); HEMOLYSIS < 15 (0-50); Lactate Dehydrogenase 408 U/L (313-618); Potassium 4.2 mmol/L (3.4-5.1); Sodium 131 mmol/L (137-145); Total Protein 5.3 g/dL (6.3-8.2)
--- NOTE | 2020-08-16 08:20 | PM.OBPN.1 ---
Subjective - OB Subjective Patient comments: pain well controlled, tolerating diet and flatus present baby status: doing well feeding status: exclusively breast feeding Narrative: This patient is a 25yo P1 POD#1 s/p elective primary section in the setting of preeclampsia without severe features. Date Patient Seen: 08/16/20 Time Patient Seen: 07:50 Interval history: The patient reports feeling well today, is normotensive overnight without labetalol, no headaches, visual changes, chest pain, trouble breathing. Good pain control, Tolerating p.o., passing flatus, ambulating, moderate lochia. Mid voiding trial. Exam Vital Signs (past 8 hours): 123/84, HR 90 Oxygen Delivery Method Room Air Const General: cooperative, healthy appearing and comfortable Resp Effort & Inspection: normal respiratory effort Auscultation: clear to auscultation bilaterally Cardio Rate: regular rate Rhythm: regular rhythm GI Inspection: incision (Covered with Aquacel, some old blood) Palpation: soft and No tender Other: Fundus firm, 1 below U Objective Labs Result Diagrams: 08/16/20 06:00 08/16/20 06:00 Labs: Laboratory Results - last 24 hr 08/15/20 08/15/20 08/15/20 12:30 12:30 12:30 WBC 12.1 H RBC 4.04 Hgb 12.9 Hct 37.9 MCV 93.8 MCH 31.9 MCHC 34.0 RDW 13.4 Plt Count 319 Neut % (Auto) 73.5 Lymph % (Auto) 18.4 L [place] % (Auto) 5.3 Eos % (Auto) 2.0 Baso % (Auto) 0.8 Neut # (Auto) 8900 H Lymph # (Auto) 2200 [place] # (Auto) 600 Eos # (Auto) 200 Baso # (Auto) 100 Sodium 133 L Potassium 4.1 Chloride 107 Carbon Dioxide 19 L BUN 8 Creatinine 0.41 L Estimated GFR > 60.0 BUN/Creatinine Ratio 19.5 Glucose 85 Uric Acid 5.3 Calcium 9.5 Total Bilirubin 0.4 AST 25 ALT 15 Alkaline Phosphatase 124 Lactate Dehydrogenase 426 Total Protein 6.4 Albumin 3.6 Globulin 2.8 Albumin/Globulin Ratio 1.3 COVID-19 PCR Blood Type O Positive Antibody Screen Negative 08/15/20 08/16/20 08/16/20 12:30 06:00 06:00 WBC 12.5 H RBC 3.12 L Hgb 10.0 L Hct 29.4 L MCV 94.3 MCH 32.2 MCHC 34.1 RDW 13.4 Plt Count 285 Neut % (Auto) 71.8 Lymph % (Auto) 20.0 L [place] % (Auto) 6.0 Eos % (Auto) 1.7 L Baso % (Auto) 0.5 Neut # (Auto) 9000 H Lymph # (Auto) 2500 [place] # (Auto) 800 Eos # (Auto) 200 Baso # (Auto) 100 Sodium 131 L Potassium 4.2 Chloride 104 Carbon Dioxide 26 BUN 9 Creatinine 0.64 Estimated GFR > 60.0 BUN/Creatinine Ratio 14.1 Glucose 93 Uric Acid 6.0 Calcium 8.6 Total Bilirubin 0.4 AST 25 ALT 13 Alkaline Phosphatase 81 Lactate Dehydrogenase 408 Total Protein 5.3 L Albumin 2.8 L Globulin 2.5 Albumin/Globulin Ratio 1.1 COVID-19 PCR Negative Blood Type Antibody Screen Assessment & Plan Assessment and Plan (1) Preeclampsia: Status: Acute (2) Delivery by section: Start date: 08/16/20 Status: Acute Assessment and plan: This patient is recovering appropriately, meeting goals as expected. Her blood pressures are well controlled without labetalol, we will continue to monitor them. The patient was encouraged to ambulate today, will continue to progress towards meeting postoperative and discharge goals. Precautions were discussed. Time Spent With Patient Time: Total time spent is greater than 50% in coordination of care (as documented) at patient's floor/unit and/or counseling patient: Time with patient: 15-24 minutes
[2020-08-16] MEDS: ACETAMINOPHEN 325 MG TABLET 650 MG PO ×2 (17:34→22:58)
[2020-08-16] MEDS: IBUPROFEN 600 MG TABLET PO ×2 (17:38→22:58)
[2020-08-16] MEDS: OXYCODONE IR 5 MG TABLET PO (22:58)
[2020-08-17] MEDS: OXYCODONE IR 5 MG TABLET PO ×2 (04:57→11:41)
[2020-08-17] MEDS: ACETAMINOPHEN 325 MG TABLET 650 MG PO ×2 (04:57→11:41)
[2020-08-17] MEDS: IBUPROFEN 600 MG TABLET PO ×2 (04:57→11:40)
[2020-08-17] MEDS: DOCUSATE 250 MG CAPSULE PO (08:04)
[2020-08-17] MEDS: LANOLIN OINT 7 GM 1 APPLIC TOP (08:04)
--- NOTE | 2020-08-17 10:17 | PM.OBDS.1 ---
Discharge Providers Provider Date of admission: 08/15/20 11:57 Discharge Date: 08/17/20 Primary care physician: Doctor Damien MD Consults: 08/15/20 17:08 Consult to Chemical Processing Equipment Repairer Routine Comment: Discharge provider: Callie Luciano MD Summary Hospital Course Date Patient Seen: 08/17/20 Time Patient Seen: 10:18 Procedures: primary section Hospital Course: This patient is a 25-year-old now para 1 planned for elective primary section, delivered at 38 weeks due to preeclampsia without severe features. Her section was uncomplicated, and her recovery was uneventful. She was normotensive after delivery without any medications. She met postoperative goals appropriately and was discharged on postop day 2 with scheduled close clinic follow-up. Peripartum Data Infant Delivery Method: Section Laceration Description: None Procedures: Primary section complications: none Yuan: Gender: Male Disposition of : home Discharge Diagnosis (1) Preeclampsia: Status: Acute (2) Delivery by section: Status: Acute Status at Discharge Cognitive/behavioral status at discharge: oriented Overall status at discharge: patient is progressing back to baseline Time Spent with Patient Time attestation: Total time spent providing and/or coordinating discharge services: Time spent: Less than 30 minutes Objective Labs Result Diagrams: 08/16/20 06:00 08/16/20 06:00 Exam Vital Signs (past 8 hours): 110s-130/70s-80s Oxygen Delivery Method Room Air Narrative Exam Narrative: Patient resting in bed with , reports moderate lochia, good pain control, no visual changes, headaches, chest pain, trouble breathing, right upper quadrant pain. Ambulating, passing flatus, voiding, tolerating p.o.. Resp Effort & Inspection: normal respiratory effort Auscultation: clear to auscultation bilaterally Cardio Rate: regular rate Rhythm: regular rhythm GI Inspection: incision (Covered by clean Aquacel) Palpation: soft and No tender Other: Fundus firm, well below U Extrem General: normal to inspection (No edema) Discharge Plan Discharge Plan Patient Disposition: Home Discharge orders & Medications Prescriptions: New oxycodone 5 mg tablet 5 mg PO Q6H PRN (Reason: pain) Qty: 14 RF: 0 ibuprofen 600 mg tablet 600 mg PO Q6H PRN (Reason: pain) Qty: 30 RF: 0 docusate sodium 100 mg tablet 100 mg PO BID Qty: 30 RF: 0 Discontinued prenat.vits,noel,[id number] Tablet 1 tab PO DAILY RF: 0 ondansetron 4 mg tablet,disintegrating 4 mg PO Q6H PRN (Reason: nausea and vomiting) Qty: 20 RF: 0 labetalol 100 mg tablet 100 mg PO BID Qty: 30 RF: 0 Follow up/Referrals: Doctor Quezada MD [Primary Care Provider] - Callie Luciano MD [Physician] - 1 Week (Blood pressure check) Diet/Activity/Treatments Diet: Regular Activity: Nothing in the vagina for 6 weeks. Avoid lifting more than 10 lb for 6 weeks. If you have headaches, visual changes, chest pain or trouble breathing, fevers, chills, nausea, vomiting, increasing pain, increasing bleeding, or vaginal or incisional discharge, call or come to the emergency room. Skin/Wound/Dressing Care Report to your healthcare provider any signs of infection, such as:: chills, fever, night sweats, increased pain, unusual drainage and unusual redness Visit Report/Discharge Packet Instructions: DI for , Pre-eclampsia Stand Alone Forms: Discharge: Care Discharge Data Primary Care Provider: Doctor Damien
[2020-08-17 10:49] VITALS: BP 120/76; PULSE 83; RESP 16; TEMP 36.2
== END 2020-08-17 15:58 | disposition home or self-care (01) | DRG 540 ==
PROVIDERS: Admitting Provider Obstetrics & Gynecology; Referring Provider Obstetrics & Gynecology; Visit Provider Obstetrics & Gynecology
PROC: 10D00Z1 Extraction of Products of Conception, Low, Open Approach (ICD-10-PCS; CPT 59514; principal; 2020-08-15 14:30)
DX: O14.04 Mild to moderate pre-eclampsia, complicating childbirth (principal); Z3A.38 38 weeks gestation of pregnancy; Z37.0 Single live birth; F41.9 Anxiety disorder, unspecified; O99.892 Other specified diseases and conditions complicating childbirth
CPT/HCPCS: 36415; 59050; 59514; 80053; 83615; 84550; 85025; 86850; 86900; 86901; 87635; J0690; J1885; J2274; J2405; J2590

== ENCOUNTER → 2020-10-11 10:28 | Outpatient (CLI) | payer OTHER, MEDICAID, SELFPAY ==
--- NOTE | 2020-10-11 10:29 | DI.US.S_ITS ---
PROCEDURE: US PELVIC COMPLETE INDICATIONS: Heavy bleeding TECHNIQUE: Real-time scanning was performed of the pelvic organs, with image documentation. Additional endovaginal scanning was necessary due to incomplete visualization of the adnexal and endometrial structures by transabdominal scanning. COMPARISON: None. FINDINGS: Transabdominal scanning: A mild amount of free pelvic fluid is seen, which is considered to be within physiologic limits. Limited scanning through the kidneys shows no hydronephrosis. Endovaginal scanning: Uterus: Uterus is normal in size at 9.6 x 4.4 x 5.9 cm. The endometrium measures 9 mm in combined thickness. In this patient with this given history, scrutiny is given to the endometrial stripe for masses or abnormal vascularity. None can be seen. Ovaries: The right ovary measures 3.2 x 1.2 x 2 cm. The left ovary measures 3.4 x 2.3 x 1.8 cm. The ovaries have a normal sonographic appearance. No adnexal masses are seen. Normal appearing arterial waveforms are confirmed to each ovary. IMPRESSION: No findings of retained products of conception can be seen. Note: Concordant preliminary findings given by the application tester upon the completion of the examination to Dr. Patel. Dictated by: Christiano Nichole M.D. on 10/11/2020 at 10:17 Approved by: Christiano Nichole M.D. on 10/11/2020 at 10:19
[2020-10-11 12:18] LABS: Add Manual Diff / Slide Review NO; Basophils Absolute Auto 0 /uL (0-100); Basophils Percent Auto 0.6 % (0-2); Eosinophils Absolute Auto 200 /uL (0-450); Eosinophils Percent Auto 2.6 % (2-4); Hematocrit 39.3 % (36-46); Hemoglobin 13.5 g/dL (12.0-16.0); Lymphocytes Absolute Auto 2400 /uL (1100-4500); Lymphocytes Percent Auto 38.1 % (25-40); Mean Corpuscular HGB Conc 34.3 % (30-36); Mean Corpuscular Hemoglobin 30.9 PG (26-34); Mean Corpuscular Volume 90.2 fL (80-100); Monocytes Absolute Auto 200 /uL (0-900); Neutrophils Absolute Auto 3400 /uL (1500-7000); Neutrophils Percent Auto 54.7 % (50-75); Platelet Count 343 X10^3/uL (150-400); Red Blood Cell Count 4.36 X10^6/uL (4.0-5.2); Red Cell Distribution Width 12.3 % (11.6-14.8); White Blood Cell Count 6.2 X10^3/uL (4.5-11.0)
== END ==
PROVIDERS: Referring Provider Obstetrics & Gynecology; Visit Provider Obstetrics & Gynecology
DX: O72.1 Other immediate postpartum hemorrhage (principal); N93.9 Abnormal uterine and vaginal bleeding, unspecified; R42 Dizziness and giddiness
CPT/HCPCS: 36415; 76830; 76856; 85025

== ENCOUNTER → 2021-01-10 14:04 | Outpatient (CLI) | payer OTHER, MEDICAID, SELFPAY | PROVIDERS: Visit Provider Physician Assistant | DX: J02.9 Acute pharyngitis, unspecified (principal) | CPT/HCPCS: 87070; 87077; 87186 ==

== ENCOUNTER → 2021-02-08 12:18 | Outpatient (CLI) | payer OTHER, MEDICAID, SELFPAY ==
[2021-02-08 15:38] LABS: HCG Quantitative /Beta subunit 429.5 mIU/mL
== END ==
PROVIDERS: Referring Provider Obstetrics & Gynecology; Visit Provider Obstetrics & Gynecology
DX: N91.2 Amenorrhea, unspecified (principal); Z32.01 Encounter for pregnancy test, result positive
CPT/HCPCS: 36415; 84702

== ENCOUNTER → 2021-02-10 11:01 | Outpatient (CLI) | payer OTHER, MEDICAID, SELFPAY ==
[2021-02-10 12:20] LABS: HCG Quantitative /Beta subunit 74.2 mIU/mL
== END ==
PROVIDERS: Referring Provider Obstetrics & Gynecology; Visit Provider Obstetrics & Gynecology
DX: N91.2 Amenorrhea, unspecified (principal); Z32.01 Encounter for pregnancy test, result positive
CPT/HCPCS: 36415; 84702

== ENCOUNTER → 2021-04-18 12:38 | Outpatient (CLI) | payer OTHER, MEDICAID, SELFPAY ==
--- NOTE | 2021-04-18 12:39 | DI.US.S_ITS ---
PROCEDURE: US PELVIC COMPLETE INDICATIONS: DUB SINCE SAB 02-16-21 TECHNIQUE: Real-time scanning was performed of the pelvic organs, with image documentation. Additional endovaginal scanning was necessary due to incomplete visualization of the adnexal and endometrial structures by transabdominal scanning. COMPARISON: [facility], US, US PELVIC COMPLETE, 10/11/2020, 10:37. FINDINGS: Uterus: Uterus is normal in size at 7.1 x 3.9 x 5.2 cm. The endometrium measures 5.4 mm in combined thickness. Ill-defined 1.7 x 1.2 x 1.5 cm structure with heterogeneous echotexture is noted within posterior mid myometrium without internal vascularity. No gross endometrial mass or fluid. Ovaries: Right ovary measures 3.4 x 1.8 x 2.3 cm in size. Left ovary measures 3.3 x 2 x 2 cm in size. No solid appearing ovarian lesion. Normal blood flow is seen in bilateral ovaries on color Doppler images. Other: No pathologic free abdominal or pelvic fluid. IMPRESSION: 1. 1.7 x 1.2 x 1.5 cm heterogeneous echogenicity structure within posterior myometrium which may represent a small uterine fibroid. No gross endometrial mass or fluid. No pelvic free fluid. No evidence of retained products. 2. Normal appearing bilateral ovaries. Dictated by: Maxx Whitfield M.D. on 04/18/2021 at 15:11 Approved by: Maxx Whitfield M.D. on 04/18/2021 at 15:15
== END ==
PROVIDERS: Referring Provider Obstetrics & Gynecology; Visit Provider Obstetrics & Gynecology
DX: O03.9 Complete or unspecified spontaneous abortion without complication (principal); N93.9 Abnormal uterine and vaginal bleeding, unspecified
CPT/HCPCS: 76830; 76856

== ENCOUNTER → 2021-08-11 11:23 | Outpatient (CLI) | payer OTHER, SELFPAY ==
[2021-08-11 13:47] LABS: Add Manual Diff / Slide Review NO; Basophils Absolute Auto 0 /uL (0-100); Basophils Percent Auto 0.5 % (0-2); Eosinophils Absolute Auto 100 /uL (0-450); Eosinophils Percent Auto 2.1 % (2-4); Hematocrit 42.1 % (36-46); Hemoglobin 14.4 g/dL (12.0-16.0); Lymphocytes Absolute Auto 1700 /uL (1100-4500); Lymphocytes Percent Auto 30.2 % (25-40); Mean Corpuscular HGB Conc 34.3 % (30-36); Mean Corpuscular Hemoglobin 30.9 PG (26-34); Mean Corpuscular Volume 89.9 fL (80-100); Monocytes Absolute Auto 300 /uL (0-900); Monocytes Percent Auto 4.8 % (3-14); Neutrophils Absolute Auto 3400 /uL (1500-7000); Neutrophils Percent Auto 62.4 % (50-75); Platelet Count 386 X10^3/uL (150-400); Red Blood Cell Count 4.68 X10^6/uL (4.0-5.2); White Blood Cell Count 5.5 X10^3/uL (4.5-11.0)
[2021-08-11 14:29] LABS: Alanine Aminotransferase 15 IU/L (<35); Albumin 4.6 g/dL (3.5-5.0); Albumin Globulin Ratio 1.6 (1.0-2.8); Alkaline Phosphatase 57 U/L (38-126); Aspartate Aminotransferase 21 IU/L (14-36); BUN Creatinine Ratio 13.2 (6-22); Bilirubin Total 0.4 mg/dL (0.2-1.3); Blood Urea Nitrogen 7 mg/dL (7-17); Calcium 9.4 mg/dL (8.4-10.2); Carbon Dioxide 24 mmol/L (22-32); Chloride 103 mmol/L (98-107); Cholesterol 214 mg/dL (140-199); Estimated Glomerular Filt Rate > 60.0 mL/min (>60); Globulin 2.9 g/dL (1.7-4.1); Glucose 89 mg/dL (70-100); HDL Cholesterol 78 mg/dL (40-60); HEMOLYSIS < 15 (0-50); LDL Cholesterol Calculated 121 mg/dL (<100); Potassium 3.8 mmol/L (3.4-5.1); Sodium 137 mmol/L (137-145); Total Protein 7.5 g/dL (6.3-8.2); Triglycerides 73 mg/dL (35-150)
[2021-08-11 15:02] LABS: TSH w/ Reflex to FT4 1.02 uIU/mL (0.47-4.68)
== END ==
PROVIDERS: PCP Family Medicine; Referring Provider Family Medicine; Visit Provider Family Medicine
DX: F41.8 Other specified anxiety disorders (principal); F90.9 Attention-deficit hyperactivity disorder, unspecified type; R03.0 Elevated blood-pressure reading, without diagnosis of hypertension
CPT/HCPCS: 36415; 80053; 80061; 84443; 85025

== ENCOUNTER → 2022-10-22 09:24 | Outpatient (CLI) | payer OTHER, SELFPAY ==
--- NOTE | 2022-10-22 | DI.MG.S_ITS ---
BILATERAL DIGITAL DIAGNOSTIC MAMMOGRAM 3D/2D: 10/22/2022 CLINICAL: Baseline exam. Family history of breast cancer. Right breast discharge. No prior exams were available for comparison. Both breasts are heterogeneously dense, which may obscure small masses (category c / 51-75% glandular tissue). No significant masses, calcifications, or other findings are seen in either breast. IMPRESSION: INCOMPLETE: NEEDS ADDITIONAL IMAGING EVALUATION There is no abnormality seen in the right breast to correspond with the discharge from the nipple, however, ultrasound is recommended. Based on Tyrer-Cuzick model (a risk assessment model), the patient's lifetime risk is 27.7% and her 10 year risk is 0.9%. If a patient has an elevated risk, a more comprehensive evaluation should be considered and/or a referral to a genetic counselor. The [place] [employer], [place] [employer], and NCCN Guidelines advise the consideration of Breast MRI as an adjunct to screening mammography in patients whose Lifetime risk to develop breast cancer is 20% or higher. This exam was interpreted at Station ID: [id number]. NOTE: For mammograms, a report in lay terms will be sent to the patient. Approximately 15% of breast malignancies will not be visualized mammographically. In the management of a palpable breast mass, a negative mammogram must not discourage biopsy of a clinically suspicious lesion. Electronically Signed By: Jose Alfredo Salvador M.D. lc/:10/22/2022 10:46:29 ACR BI-RADS Category 0: Incomplete [id number]
--- NOTE | 2022-10-22 09:24 | DI.US.S_ITS ---
ULTRASOUND OF RIGHT BREAST: 10/22/2022 CLINICAL: Nipple discharge, right breast, not bloody. No prior exams were available for comparison. Real-time ultrasound of the right breast was performed. Bazan scale images of the real-time examination were reviewed. No significant abnormalities were seen sonographically in the right breast. IMPRESSION: NEGATIVE There is no sonographic evidence of malignancy. There is no abnormality seen in the right breast to correspond with the discharge from the nipple. Please note, with patient's elevated lifetime risk and family history, screening mammogram and possibly MRI can be considered before age 40. In addition, if clinical concern for discharge persists and no alternative cause is found, further workup with breast MRI is reasonable. No etiology or target amenable to biopsy is found on today's mammogram or ultrasound. Clinical evaluation is recommended. This was discussed with the patient. This exam was interpreted at Station ID: [id number]. Electronically Signed By: Jose Alfredo Salvador M.D. lc/:10/22/2022 10:49:58 letter sent: Clinical Evaluation Ultrasound BI-RADS: 1 Negative
== END ==
PROVIDERS: PCP Family Medicine; Referring Provider Family Medicine; Visit Provider Family Medicine
DX: N64.52 Nipple discharge (principal); N92.0 Excessive and frequent menstruation with regular cycle; Z80.3 Family history of malignant neoplasm of breast; R92.2 Inconclusive mammogram
CPT/HCPCS: 36415; 76642; 77066; 83001; 83002; 84146; G0279

== ENCOUNTER → 2022-10-22 10:51 | Outpatient (CLI) | payer OTHER, SELFPAY ==
[2022-10-22 12:07] LABS: Prolactin 6.7 ng/mL (3.0-18.6)
[2022-10-22 12:08] LABS: Follicle Stimulating Hormone 4.72 mIU/mL
== END ==
PROVIDERS: PCP Family Medicine; Referring Provider Family Medicine; Visit Provider Family Medicine
DX: N64.52 Nipple discharge (principal); N92.0 Excessive and frequent menstruation with regular cycle; Z80.3 Family history of malignant neoplasm of breast
CPT/HCPCS: 36415; 83001; 83002; 84146

== ENCOUNTER → 2023-01-17 09:35 | Outpatient (CLI) | payer OTHER, SELFPAY ==
[2023-01-17 12:39] LABS: Hematocrit 39.7 % (36-46); Hemoglobin 13.7 g/dL (12.0-16.0); Mean Corpuscular HGB Conc 34.4 % (30-36); Mean Corpuscular Hemoglobin 31.8 PG (26-34); Mean Corpuscular Volume 92.4 fL (80-100); Platelet Count 363 X10^3/uL (150-400); Red Blood Cell Count 4.29 X10^6/uL (4.0-5.2); Red Cell Distribution Width 13.4 % (11.6-14.8); White Blood Cell Count 6.1 X10^3/uL (4.5-11.0)
[2023-01-17 13:21] LABS: Alanine Aminotransferase 27 IU/L (<35); Albumin 4.1 g/dL (3.5-5.0); Albumin Globulin Ratio 1.6 (1.0-2.8); Alkaline Phosphatase 71 U/L (38-126); Aspartate Aminotransferase 28 IU/L (14-36); BUN Creatinine Ratio 16.7 (6-22); Bilirubin Total 0.2 mg/dL (0.2-1.3); Blood Urea Nitrogen 10 mg/dL (7-17); Calcium 8.7 mg/dL (8.4-10.2); Carbon Dioxide 27 mmol/L (22-32); Chloride 101 mmol/L (98-107); Estimated Glomerular Filt Rate > 60 mL/min (>60); Globulin 2.6 g/dL (1.7-4.1); Glucose 78 mg/dL (70-100); HEMOLYSIS < 15 (0-50); Potassium 4.5 mmol/L (3.4-5.1); Sodium 137 mmol/L (137-145); Total Protein 6.7 g/dL (6.3-8.2)
== END ==
PROVIDERS: PCP Family Medicine; Referring Provider Nurse Practitioner Family; Visit Provider Nurse Practitioner Family
DX: R10.9 Unspecified abdominal pain (principal)
CPT/HCPCS: 36415; 80053; 85027

== ENCOUNTER → 2023-03-12 09:49 | Outpatient (CLI) | payer OTHER, SELFPAY ==
[2023-03-12 11:49] LABS: Add Manual Diff / Slide Review NO; Basophils Absolute Auto 0 /uL (0-100); Basophils Percent Auto 0.7 % (0-2); Eosinophils Absolute Auto 300 /uL (0-450); Eosinophils Percent Auto 4.9 % (2-4); Hemoglobin 14.2 g/dL (12.0-16.0); Lymphocytes Absolute Auto 2300 /uL (1100-4500); Lymphocytes Percent Auto 34.5 % (25-40); Mean Corpuscular HGB Conc 34.6 % (30-36); Mean Corpuscular Hemoglobin 31.4 PG (26-34); Mean Corpuscular Volume 90.7 fL (80-100); Monocytes Absolute Auto 400 /uL (0-900); Monocytes Percent Auto 5.9 % (3-14); Neutrophils Absolute Auto 3500 /uL (1500-7000); Platelet Count 365 X10^3/uL (150-400); Red Blood Cell Count 4.52 X10^6/uL (4.0-5.2); Red Cell Distribution Width 12.5 % (11.6-14.8); White Blood Cell Count 6.5 X10^3/uL (4.5-11.0)
[2023-03-12 12:08] LABS: Alanine Aminotransferase 32 IU/L (<35); Albumin 4.5 g/dL (3.5-5.0); Albumin Globulin Ratio 1.4 (1.0-2.8); Alkaline Phosphatase 76 U/L (38-126); Aspartate Aminotransferase 26 IU/L (14-36); Bilirubin Total 0.4 mg/dL (0.2-1.3); Blood Urea Nitrogen 10 mg/dL (7-17); Calcium 9.2 mg/dL (8.4-10.2); Carbon Dioxide 24 mmol/L (22-32); Chloride 103 mmol/L (98-107); Cholesterol 206 mg/dL (140-199); Estimated Glomerular Filt Rate > 60 mL/min (>60); Globulin 3.3 g/dL (1.7-4.1); Glucose 101 mg/dL (70-100); HDL Cholesterol 70 mg/dL (40-60); HEMOLYSIS < 15 (0-50); LDL Cholesterol Calculated 121 mg/dL (<100); Potassium 3.9 mmol/L (3.4-5.1); Sodium 136 mmol/L (137-145); Total Protein 7.8 g/dL (6.3-8.2); Triglycerides 77 mg/dL (35-150)
[2023-03-12 12:37] LABS: TSH w/ Reflex to FT4 2.65 uIU/mL (0.47-4.68)
[2023-03-13 11:16] LABS: x Labcorp Estim. Avg Glu (eAG) 111 mg/dL (.); x Labcorp Hemoglobin A1c 5.5 % (4.8-5.6)
[2023-03-17 08:11] LABS: Percent Free Testosterone 2.09 % (0.50-2.80); Testosterone Free 0.71 ng/dL (0.10-0.85); Testosterone Total 33.8 ng/dL (10.0-55.0)
== END ==
PROVIDERS: PCP Family Medicine; Referring Provider Family Medicine; Visit Provider Family Medicine
DX: F90.9 Attention-deficit hyperactivity disorder, unspecified type (principal); R03.0 Elevated blood-pressure reading, without diagnosis of hypertension; R63.5 Abnormal weight gain
CPT/HCPCS: 36415; 80053; 80061; 83036; 84402; 84403; 84443; 85025

== ENCOUNTER → 2023-03-15 07:59 | Outpatient (CLI) | payer OTHER, SELFPAY ==
[2023-03-16 06:41] LABS: Labcorp Hemoglobin (Hb) A1c 5.6 % (4.8-5.6)
[2023-03-16 10:08] LABS: Adrenocorticotropic Hormone 3.1 pg/mL (7.2-63.3)
== END ==
PROVIDERS: PCP Family Medicine; Referring Provider Family Medicine; Visit Provider Family Medicine
DX: R03.0 Elevated blood-pressure reading, without diagnosis of hypertension (principal); R63.5 Abnormal weight gain
CPT/HCPCS: 36415; 82024; 83036

== ENCOUNTER 2023-05-25 13:35 | Emergency (ER) | payer OTHER, MEDICAID, SELFPAY ==
[2023-05-25] VITALS (14 sets, daily range): BP systolic 111–141; BP diastolic 64–85; PULSE 60–85; RESP 15–28; TEMP 36.1; O2SAT 97–100; BMI 35.0
--- NOTE | 2023-05-25 13:47 | DI.RAD.S_ITS ---
PROCEDURE: XR CHEST 1V INDICATIONS: chest pain TECHNIQUE: One view of the chest was acquired. COMPARISON: None. FINDINGS: Surgical changes and devices: None. Lungs and pleura: Lungs are clear. No pleural effusions or pneumothorax. Mediastinum: Mediastinal contours appear normal. Heart size is normal. Bones and chest wall: No suspicious bony lesions. Overlying soft tissues appear unremarkable. IMPRESSION: Portable chest within normal limits for age. Dictated by: Manan Hua M.D. on 05/25/2023 at 14:42 Approved by: Manan Hua M.D. on 05/25/2023 at 14:42
[2023-05-25] MEDS: ASPIRIN 81 MG CHEW TAB 324 MG PO (14:45)
[2023-05-25] MEDS: SODIUM CHLORIDE 0.9% 1,000 ML 1000 ML IV (14:45)
[2023-05-25 14:55] LABS: Add Manual Diff / Slide Review NO; Basophils Absolute Auto 100 /uL (0-100); Basophils Percent Auto 0.9 % (0-2); Eosinophils Absolute Auto 100 /uL (0-450); Eosinophils Percent Auto 2.2 % (2-4); Hematocrit 40.2 % (36-46); Hemoglobin 13.9 g/dL (12.0-16.0); Lymphocytes Absolute Auto 2200 /uL (1100-4500); Mean Corpuscular HGB Conc 34.6 % (30-36); Mean Corpuscular Hemoglobin 31.5 PG (26-34); Monocytes Absolute Auto 400 /uL (0-900); Monocytes Percent Auto 6.6 % (3-14); Neutrophils Absolute Auto 3800 /uL (1500-7000); Neutrophils Percent Auto 57.3 % (50-75); Platelet Count 388 X10^3/uL (150-400); Red Blood Cell Count 4.42 X10^6/uL (4.0-5.2); Red Cell Distribution Width 12.7 % (11.6-14.8); White Blood Cell Count 6.6 X10^3/uL (4.5-11.0)
[2023-05-25 15:10] LABS: Prothrombin Time 11.9 SECONDS (10.1-12.7)
[2023-05-25 15:13] LABS: PTT Partial Thromboplastin Tim 36 SECONDS (26-36)
[2023-05-25 15:15] LABS: Alanine Aminotransferase 28 IU/L (<35); Albumin 4.6 g/dL (3.5-5.0); Albumin Globulin Ratio 1.4 (1.0-2.8); Alkaline Phosphatase 64 U/L (38-126); Aspartate Aminotransferase 27 IU/L (14-36); BUN Creatinine Ratio 19.6 (6-22); Bilirubin Total 0.7 mg/dL (0.2-1.3); Blood Urea Nitrogen 10 mg/dL (7-17); Calcium 9.1 mg/dL (8.4-10.2); Carbon Dioxide 25 mmol/L (22-32); Chloride 99 mmol/L (98-107); Creatine Kinase 128 U/L (30-135); Estimated Glomerular Filt Rate > 60 mL/min (>60); Globulin 3.4 g/dL (1.7-4.1); Glucose 94 mg/dL (70-100); HEMOLYSIS < 15 (0-50); Lipase 69 U/L (23-300); Magnesium 2.1 mg/dL (1.6-2.3); Potassium 3.7 mmol/L (3.4-5.1); Sodium 135 mmol/L (137-145)
[2023-05-25 15:17] LABS: Erythrocyte Sedimentation Rate 7 MM/HR (0-20)
[2023-05-25 15:24] LABS: D Dimer < 215 ng/ml (<500)
[2023-05-25 15:27] LABS: Troponin I < 0.012 ng/mL (0.01-0.034)
[2023-05-25 15:29] LABS: C-Reactive Protein Quant < 0.5 mg/dL (<1.0)
[2023-05-25 15:52] LABS: Adenovirus Not Detected (Not Detect); Coronavirus 229E Not Detected (Not Detect); Coronavirus HKU1 Not Detected (Not Detect); Coronavirus NL 63 Not Detected (Not Detect); Coronavirus OC43 Not Detected (Not Detect); SARS- CoV-2 Not Detected (Not Detecte)
[2023-05-25 15:53] LABS: B. parapertussis Not Detected (Not Detecte); Bordetella pertussis Not Detected (Not Detecte); Chlamydophila pneumoniae Not Detected (Not Detect); Human Metapneumovirus Not Detected (Not Detect); Human Rhinovirus/Enterovirus Not Detected (Not Detect); Influenza A Not Detected (Not Detect); Influenza B Not Detected (Not Detect); Mycoplasma pneumoniae Not Detected (Not Detect); Parainfluenza Virus 1 Not Detected (Not Detect); Parainfluenza Virus 2 Not Detected (Not Detect); Parainfluenza Virus 3 Not Detected (Not Detect); Parainfluenza Virus 4 Not Detected (Not Detect); Respiratory Syncytial Virus Not Detected (Not Detect)
[2023-05-25] MEDS: KETOROLAC 30 MG/ML VIAL 15 MG IV (16:08)
--- NOTE | 2023-05-25 16:26 | ED.CHESTPAIN ---
HPI - Chest Pain General Chief Complaint: Chest Pain Stated Complaint: sent by [facility], headache, chest/rib pain,vomiting T-3 Time Seen by Provider: 05/25/23 13:40 Source: patient Mode of arrival: Ambulatory Limitations: no limitations History of Present Illness HPI narrative: 28-year-old female former smoker without significant medical history presents with the chief complaint of various symptoms including headache, sharp chest pain and some body aches over the past few days. She states that her has COVID and though she is tested herself multiple times it has, negative. She states that she had a gradually worsening headache that is squeezing in nature. She states at its worst it was a 4/10 and currently about a 1/10. She denies trauma or injury. She is had no measurable fever and denies neck pain. She denies neurologic symptoms such as blurred vision or trouble with speech. She denies obvious provocation, palliation or radiation. She is had some runny nose, nasal congestion denies much in the way of sore throat. She had an episode of what she describes is central to left-sided chest pain that was relatively sudden onset and sharp and stabbing. It was present earlier in the day and seemed to be made worse by motion, deep breath and palpation. She denies any shortness of breath but has had some cough. She denies sputum associated with cough. She is had nausea a few episodes of vomiting but known noted abdominal pain. She has had some diarrhea as well. Related Data Home Medications Medication Instructions Recorded Confirmed levonorgestrel 21 mcg/24 hours (8 intrauterine 03/12/23 04/11/23 yrs) 52 mg intrauterine device (Mirena) Previous Rx's Medication Instructions Recorded epinephrine 0.3 mg/0.3 mL 0.3 mg (0.3 mL) IM Q5-15M PRN 05/30/22 injection, auto-injector (EpiPen) anaphylaxis #2 ea buspirone 15 mg tablet 15 mg PO BID #180 tabs 11/16/22 clonazepam 0.5 mg tablet 0.25 mg PO BID PRN anxiety #20 tabs 03/12/23 fluoxetine 20 mg capsule (Prozac) 20 mg PO DAILY #90 caps 03/12/23 dexamethasone 1 mg tablet 1 mg PO ONCE #1 tab 04/11/23 metoprolol succinate 25 mg 25 mg PO DAILY #60 tabs 04/11/23 tablet,extended release 24 hr losartan 100 1 tab PO DAILY #90 tabs 05/15/23 mg-hydrochlorothiazide 12.5 mg tablet dextroamphetamine-amphetamine 20 20 mg PO BID #60 tabs 05/16/23 mg tablet (Adderall) Allergies Allergy/AdvReac Type Severity Reaction Status Date / Time hayley Allergy Severe Anaphylaxis Verified 05/25/23 13:41 Review of Systems Review of Systems Narrative: GENERAL: See HPI HEENT: See HPI RESPIRATORY: See HPI CARDIOVASCULAR: See HPI GASTROINTESTINAL: See HPI : Denies dysuria, frequency, incontinence, hematuria, urinary retention. MUSCULOSKELETAL: denies weakness, joint pain, or bony pain SKIN: Denies rash, skin lesions, or other NEUROLOGIC: Denies weakness, headache, numbness, change in speech, confusion, seizures, incoordination. PSYCHIATRIC: No concerning psychosocial issues. 12 point review of systems is negative except for those stated above Patient History Medical History ADHD Anxiety Chlamydia Crohn's disease (~2018) Depression GI bleeding (~2006) H/O being hospitalized (~2010) Heavy menstrual period Miscarriage Mixed anxiety and depressive disorder Surgical History Anesthesia Delivery by section (~08/15/20) H/O wisdom tooth extraction (~2014) S/P dilation and curettage (~2015) Family History Father Stroke Alcohol abuse Hypertension Hyperlipidemia Mother Cancer History of heart disease Hypertension Hyperlipidemia Mental health problem History of miscarriage Breast cancer Depression Anxiety Grandmother Stroke Grandfather Stomach cancer History of heart disease Hyperlipidemia Hypertension Grandfather Family estrangement Unknown whether patient has any health problems Cancer Grandmother Unknown whether patient has any health problems Cancer Family/Other Mental health problem Brother Hypertension Hyperlipidemia Social History marital status: unmarried,living together household members: significant other pets and animals: Yes (Dog) education level: college occupational status: unemployed current occupational exposures/hazards: No special david needs: No Smoking Status: Former smoker Tobacco: How many years used: 1 second hand exposure: No alcohol intake: current (2-3 drinks/ 2 wks ) substance use type: does not use Smoking Status: Former smoker Substance Use Type: does not use Exam Narrative Exam Narrative: GENERAL: [28] year old patient appears stated age. Well-developed patient, in mild distress. HEAD: Atraumatic. Normocephalic. EYES: Pupils equal round and reactive. Extraocular motions intact. No scleral icterus. No injection or drainage. ENT: Nose without bleeding, purulent drainage. Throat without erythema, tonsillar hypertrophy or exudate. Airway patent. NECK: Trachea midline. Non tender, no meningeal signs CARDIOVASCULAR: Regular rate and rhythm without murmurs, gallops, or rubs. RESPIRATORY: Clear to auscultation. Breath sounds equal bilaterally. No wheezes, rales, or rhonchi. GASTROINTESTINAL: Abdomen soft, non-tender, nondistended. EXTREMITIES: No edema or joint tenderness. BACK: Nontender without deformity or crepitance. No flank tenderness. NEURO: AOx3. SKIN: No rash or erythema of visible areas Initial Vital Signs Initial Vital Signs: Vital Signs Temperature 97.0 F L 05/25/23 13:41 Pulse Rate 85 05/25/23 13:41 Respiratory Rate 18 05/25/23 13:41 Blood Pressure 141/85 H 05/25/23 13:41 Pulse Oximetry 99 05/25/23 13:41 Oxygen Delivery Method Room Air 05/25/23 13:41 Course Orders Ordered: Discontinued Medications Aspirin (Aspirin 81 Mg Chew Tab) 324 mg PO NOW ONE Stop: 05/25/23 13:48 Last Admin: 05/25/23 14:45 Dose: 324 mg Documented By: ADRIAN Sodium Chloride (Normal Saline 0.9%) 1,000 mls @ 1,000 mls/hr IV BOLUS ONE Stop: 05/25/23 15:04 Last Infusion: 05/25/23 15:59 Dose: 0 mls/hr Documented By: Admin: 05/25/23 14:45 Dose: 1,000 mls/hr Documented By: ADRIAN Ketorolac Tromethamine (Ketorolac 30 Mg/Ml Vial) 15 mg IV NOW ONE Stop: 05/25/23 16:00 Last Admin: 05/25/23 16:08 Dose: 15 mg Documented By: BRITTANY Vital Signs Vital signs: Vital Signs - 8 hr 05/25/23 13:41 05/25/23 13:51 05/25/23 14:00 Temperature 97.0 F L Pulse Rate 85 76 81 Respiratory Rate 18 28 H 22 Blood Pressure 141/85 H Pulse Oximetry 99 100 100 Oxygen Delivery Method Room Air 05/25/23 14:12 05/25/23 14:12 05/25/23 14:30 Temperature Pulse Rate 85 Respiratory Rate 24 Blood Pressure 130/80 116/76 Pulse Oximetry 99 Oxygen Delivery Method 05/25/23 14:30 05/25/23 14:51 05/25/23 14:51 Temperature Pulse Rate 70 81 Respiratory Rate 23 20 Blood Pressure 119/83 Pulse Oximetry 97 97 Oxygen Delivery Method 05/25/23 14:55 05/25/23 14:55 05/25/23 15:00 Temperature Pulse Rate 70 Respiratory Rate 22 Blood Pressure 121/84 127/81 Pulse Oximetry 99 Oxygen Delivery Method 05/25/23 15:00 05/25/23 15:15 05/25/23 15:15 Temperature Pulse Rate 68 80 Respiratory Rate Blood Pressure 119/64 Pulse Oximetry 99 100 Oxygen Delivery Method 05/25/23 15:30 05/25/23 15:30 05/25/23 15:45 Temperature Pulse Rate 69 Respiratory Rate 15 Blood Pressure 127/83 118/73 Pulse Oximetry 100 Oxygen Delivery Method 05/25/23 15:45 Temperature Pulse Rate 64 Respiratory Rate 19 Blood Pressure Pulse Oximetry 100 Oxygen Delivery Method MDM - Chest Pain Lab Data 05/25/23 14:45 05/25/23 14:45 Labs: Lab Results 05/25/23 05/25/23 05/25/23 Range/Units 14:45 14:45 14:45 WBC 6.6 (4.5-11.0) X10^3/uL RBC 4.42 (4.0-5.2) X10^6/uL Hgb 13.9 (12.0-16.0) g/dL Hct 40.2 (36-46) % MCV 91.0 (80-100) fL MCH 31.5 (26-34) PG MCHC 34.6 (30-36) % RDW 12.7 (11.6-14.8) % Plt Count 388 (150-400) X10^3/uL Neut % (Auto) 57.3 (50-75) % Lymph % (Auto) 33.0 (25-40) % [place] % (Auto) 6.6 (3-14) % Eos % (Auto) 2.2 (2-4) % Baso % (Auto) 0.9 (0-2) % Neut # (Auto) 3800 (9704-1333) /uL Lymph # (Auto) 2200 (4696-9014) /uL [place] # (Auto) 400 (0-900) /uL Eos # (Auto) 100 (0-450) /uL Baso # (Auto) 100 (0-100) /uL ESR (0-20) MM/HR PT 11.9 (10.1-12.7) SECONDS INR 1.0 (0.9-1.3) APTT 36 (26-36) SECONDS D-Dimer (<500) ng/ml Sodium 135 L (137-145) mmol/L Potassium 3.7 (3.4-5.1) mmol/L Chloride 99 (98-107) mmol/L Carbon Dioxide 25 (22-32) mmol/L BUN 10 (7-17) mg/dL Creatinine 0.51 L (0.52-1.04) mg/dL Estimated GFR > 60 (>60) mL/min BUN/Creatinine Ratio 19.6 (6-22) Glucose 94 (70-100) mg/dL Calcium 9.1 (8.4-10.2) mg/dL Magnesium 2.1 (1.6-2.3) mg/dL Total Bilirubin 0.7 (0.2-1.3) mg/dL AST 27 (14-36) IU/L ALT 28 (<35) IU/L Alkaline Phosphatase 64 (38-126) U/L Total Creatine Kinase 128 (30-135) U/L Troponin I < 0.012 (0.01-0.034) ng/mL C-Reactive Protein (<1.0) mg/dL Total Protein 8.0 (6.3-8.2) g/dL Albumin 4.6 (3.5-5.0) g/dL Globulin 3.4 (1.7-4.1) g/dL Albumin/Globulin Ratio 1.4 (1.0-2.8) Lipase 69 (23-300) U/L Chlamy pneumoniae PCR (Not Detect) Adenovirus (PCR) (Not Detect) B. pertussis DNA (PCR) (Not Detecte) B.parapertussis DNA PCR (Not Detecte) Coronavirus OC43 (PCR) (Not Detect) Coronavirus HKU1 (PCR) (Not Detect) Coronavirus 229E (PCR) (Not Detect) SARS-CoV-2 (PCR) (Not Detecte) Coronavirus NL63 (PCR) (Not Detect) Human Metapneumovir PCR (Not Detect) Influenza Type A (PCR) (Not Detect) Influenza Type B (PCR) (Not Detect) M. pneumoniae (PCR) (Not Detect) Parainfluenza 1 (PCR) (Not Detect) Parainfluenza 2 (PCR) (Not Detect) Parainfluenza 3 (PCR) (Not Detect) Parainfluenza 4 (PCR) (Not Detect) RSV (PCR) (Not Detect) Entero/Rhino (PCR) (Not Detect) 05/25/23 05/25/23 05/25/23 Range/Units 14:45 14:45 14:45 WBC (4.5-11.0) X10^3/uL RBC (4.0-5.2) X10^6/uL Hgb (12.0-16.0) g/dL Hct (36-46) % MCV (80-100) fL MCH (26-34) PG MCHC (30-36) % RDW (11.6-14.8) % Plt Count (150-400) X10^3/uL Neut % (Auto) (50-75) % Lymph % (Auto) (25-40) % [place] % (Auto) (3-14) % Eos % (Auto) (2-4) % Baso % (Auto) (0-2) % Neut # (Auto) (8156-1341) /uL Lymph # (Auto) (4271-9882) /uL [place] # (Auto) (0-900) /uL Eos # (Auto) (0-450) /uL Baso # (Auto) (0-100) /uL ESR 7 (0-20) MM/HR PT (10.1-12.7) SECONDS INR (0.9-1.3) APTT (26-36) SECONDS D-Dimer < 215 (<500) ng/ml Sodium (137-145) mmol/L Potassium (3.4-5.1) mmol/L Chloride (98-107) mmol/L Carbon Dioxide (22-32) mmol/L BUN (7-17) mg/dL Creatinine (0.52-1.04) mg/dL Estimated GFR (>60) mL/min BUN/Creatinine Ratio (6-22) Glucose (70-100) mg/dL Calcium (8.4-10.2) mg/dL Magnesium (1.6-2.3) mg/dL Total Bilirubin (0.2-1.3) mg/dL AST (14-36) IU/L ALT (<35) IU/L Alkaline Phosphatase (38-126) U/L Total Creatine Kinase (30-135) U/L Troponin I (0.01-0.034) ng/mL C-Reactive Protein < 0.5 (<1.0) mg/dL Total Protein (6.3-8.2) g/dL Albumin (3.5-5.0) g/dL Globulin (1.7-4.1) g/dL Albumin/Globulin Ratio (1.0-2.8) Lipase (23-300) U/L Chlamy pneumoniae PCR (Not Detect) Adenovirus (PCR) (Not Detect) B. pertussis DNA (PCR) (Not Detecte) B.parapertussis DNA PCR (Not Detecte) Coronavirus OC43 (PCR) (Not Detect) Coronavirus HKU1 (PCR) (Not Detect) Coronavirus 229E (PCR) (Not Detect) SARS-CoV-2 (PCR) (Not Detecte) Coronavirus NL63 (PCR) (Not Detect) Human Metapneumovir PCR (Not Detect) Influenza Type A (PCR) (Not Detect) Influenza Type B (PCR) (Not Detect) M. pneumoniae (PCR) (Not Detect) Parainfluenza 1 (PCR) (Not Detect) Parainfluenza 2 (PCR) (Not Detect) Parainfluenza 3 (PCR) (Not Detect) Parainfluenza 4 (PCR) (Not Detect) RSV (PCR) (Not Detect) Entero/Rhino (PCR) (Not Detect) 05/25/23 Range/Units 14:55 WBC (4.5-11.0) X10^3/uL RBC (4.0-5.2) X10^6/uL Hgb (12.0-16.0) g/dL Hct (36-46) % MCV (80-100) fL MCH (26-34) PG MCHC (30-36) % RDW (11.6-14.8) % Plt Count (150-400) X10^3/uL Neut % (Auto) (50-75) % Lymph % (Auto) (25-40) % [place] % (Auto) (3-14) % Eos % (Auto) (2-4) % Baso % (Auto) (0-2) % Neut # (Auto) (7696-9979) /uL Lymph # (Auto) (5453-4805) /uL [place] # (Auto) (0-900) /uL Eos # (Auto) (0-450) /uL Baso # (Auto) (0-100) /uL ESR (0-20) MM/HR PT (10.1-12.7) SECONDS INR (0.9-1.3) APTT (26-36) SECONDS D-Dimer (<500) ng/ml Sodium (137-145) mmol/L Potassium (3.4-5.1) mmol/L Chloride (98-107) mmol/L Carbon Dioxide (22-32) mmol/L BUN (7-17) mg/dL Creatinine (0.52-1.04) mg/dL Estimated GFR (>60) mL/min BUN/Creatinine Ratio (6-22) Glucose (70-100) mg/dL Calcium (8.4-10.2) mg/dL Magnesium (1.6-2.3) mg/dL Total Bilirubin (0.2-1.3) mg/dL AST (14-36) IU/L ALT (<35) IU/L Alkaline Phosphatase (38-126) U/L Total Creatine Kinase (30-135) U/L Troponin I (0.01-0.034) ng/mL C-Reactive Protein (<1.0) mg/dL Total Protein (6.3-8.2) g/dL Albumin (3.5-5.0) g/dL Globulin (1.7-4.1) g/dL Albumin/Globulin Ratio (1.0-2.8) Lipase (23-300) U/L Chlamy pneumoniae PCR Not detected (Not Detect) Adenovirus (PCR) Not detected (Not Detect) B. pertussis DNA (PCR) Not detected (Not Detecte) B.parapertussis DNA PCR Not detected (Not Detecte) Coronavirus OC43 (PCR) Not detected (Not Detect) Coronavirus HKU1 (PCR) Not detected (Not Detect) Coronavirus 229E (PCR) Not detected (Not Detect) SARS-CoV-2 (PCR) Not detected (Not Detecte) Coronavirus NL63 (PCR) Not detected (Not Detect) Human Metapneumovir PCR Not detected (Not Detect) Influenza Type A (PCR) Not detected (Not Detect) Influenza Type B (PCR) Not detected (Not Detect) M. pneumoniae (PCR) Not detected (Not Detect) Parainfluenza 1 (PCR) Not detected (Not Detect) Parainfluenza 2 (PCR) Not detected (Not Detect) Parainfluenza 3 (PCR) Not detected (Not Detect) Parainfluenza 4 (PCR) Not detected (Not Detect) RSV (PCR) Not detected (Not Detect) Entero/Rhino (PCR) Not detected (Not Detect) Point of Care Testing Test Results Negative Urine Dip Bedside Urine Glucose Negative Bedside Urine Bilirubin - Negative Bedside Urine Ketone - Negative Urine Specific [place] 1.000 Bedside Urine Occult Blood - Negative Bedside Urine pH 6.0 Bedside Urine Protein - Negative Bedside Urine Urobilinogen - Negative Bedside Urine Nitrite - Negative Bedside Urine Leukocytes - Negative Esterase MDM Narrative Medical decision making narrative: [28] year old patient presents with various symptoms including headache, nasal congestion, chest pain, vomiting and diarrhea Multiple etiologies for patient's symptoms considered including, but not limited to: [Flu versus COVID versus other viral upper respiratory infection versus pneumonia versus pulmonary embolism versus meningitis versus other] Prior Charts reviewed in our EMR Primary Historian: patient Labs reviewed and interpreted by myself: White blood cell 6.6, no left shift, D-dimer less than 215, primary electrolytes, renal function, troponin and inflammatory markers all normal Imaging reviewed: Chest x-ray without acute findings History and physical exam reassuring, multiple diagnoses considered as noted above. Respiratory panel unremarkable without acute findings. Cardiac ischemia considered but thought extremely unlikely given history and physical exam, low risk, low heart score, nonocclusive EKG and negative troponin. Pulmonary embolism considered but thought unlikely given D-dimer well below cutoff for imaging. Meningitis thought to be extremely unlikely given lack of meningeal signs, no fever. Patient's symptoms improved over duration of stay with above-stated therapies. Findings and discharge diagnosis discussed with patient/family followed by verbalization of understanding Return precautions discussed with patient/family whom verbalize understanding of diagnosis and plan Discharge Plan Departure Patient Disposition: Home Clinical Impression: Headache, Atypical chest pain Instructions: DI for Atypical Chest Pain Activity Restrictions/Additional Instructions: *You have been diagnosed with [headache, atypical chest pain. As we discussed your history and physical exam are reassuring and your labs, EKG, respiratory panel and chest x-ray are very reassuring] *What to do: *Please continue to take your regular medications as directed. [ ] New medication prescriptions sent to your pharmacy: [ ] [ ] New medication written as a paper prescription [ ] No new medications given *Please follow up with your primary care provider in 2-3 days, call for an appointment. Let them know you were seen in the Emergency Department and that we ask that you be seen in follow up. We will electronically transmit a record of today's note if your PCP is in our system *If you do not have a primary care provider please contact the [facility] Resource line at [phone]. They will ask some questions about your medical history and help get you set up with a doctor in the community. *Return to Emergency Department if you should have any new, worsening or concerning symptoms, such as [fever greater than 101 F, shaking chills, worsening pain, persistent vomiting or other bothersome symptoms] Prescriptions: No Action epinephrine [EpiPen] 0.3 mg/0.3 mL auto-injector 0.3 mg IM Q5-15M PRN (Reason: anaphylaxis) Qty: 2 0RF Rx Instructions: do not exceed 3 doses per episode. Proceed to ED immediately after first administration losartan-hydrochlorothiazide 100-12.5 mg tablet 1 tab PO DAILY Qty: 90 3RF dextroamphetamine-amphetamine [Adderall] 20 mg tablet 20 mg PO BID Qty: 60 0RF Rx Instructions: administer doses at least 4-6 hours apart Mirena 21 mcg/24 hours (8 yrs) 52 mg intrauterine device intrauterine fluoxetine [Prozac] 20 mg capsule 20 mg PO DAILY Qty: 90 0RF clonazepam 0.5 mg tablet 0.25 mg PO BID PRN (Reason: anxiety) Qty: 20 0RF buspirone 15 mg tablet 15 mg PO BID Qty: 180 0RF metoprolol succinate 25 mg tablet extended release 24 hr 25 mg PO DAILY Qty: 60 0RF dexamethasone 1 mg tablet 1 mg PO ONCE Qty: 1 0RF Rx Instructions: Take pill between 11pm and 12 am then come to lab next day at 0800 for lab draw Referrals: Cosmo Baig MD [Primary Care Provider] - Stand Alone Forms: Patient Portal/API
== END 2023-05-25 16:55 | disposition home or self-care (01) ==
PROVIDERS: Emergency Provider Emergency Medicine; PCP Family Medicine
DX: R07.89 Other chest pain (principal); R51.9 Headache, unspecified
CPT/HCPCS: 36415; 71045; 80053; 81003; 81025; 82550; 83690; 83735; 84484; 85025; 85379; 85610; 85651; 85730; 86140; 87633; 93005; 96374; 99284; J1885

== ENCOUNTER → 2023-06-20 08:04 | Outpatient (CLI) | payer OTHER, MEDICAID, SELFPAY ==
[2023-06-20 09:43] LABS: Cortisol AM (Before 10AM) 0.98 ug/dL (4.46-22.7)
== END ==
PROVIDERS: PCP Family Medicine; Referring Provider Family Medicine; Visit Provider Family Medicine
DX: F41.9 Anxiety disorder, unspecified (principal); F90.9 Attention-deficit hyperactivity disorder, unspecified type; R03.0 Elevated blood-pressure reading, without diagnosis of hypertension; R63.5 Abnormal weight gain
CPT/HCPCS: 36415; 82533

== ENCOUNTER 2023-07-20 19:07 | Emergency (ER) | payer OTHER, MEDICAID, SELFPAY ==
[2023-07-20 19:10] VITALS: BP 156/107; PULSE 95; RESP 20; TEMP 36.9; O2SAT 99; BMI 35.6
--- NOTE | 2023-07-20 19:16 | DI.RAD.S_ITS ---
PROCEDURE: XR CHEST 1V INDICATIONS: Chest pain and shortness of breath TECHNIQUE: One view of the chest was acquired. COMPARISON: [facility], CR, XR CHEST 1V, 05/25/2023, 13:54. FINDINGS: Surgical changes and devices: None. Lungs and pleura: Lungs are clear. No pleural effusions or pneumothorax. Mediastinum: Mediastinal contours appear normal. Heart size is normal. Bones and chest wall: No suspicious bony lesions. Overlying soft tissues appear unremarkable. IMPRESSION: Normal for age, source of current chest pain symptoms is not seen. Dictated by: Len Cardona M.D. on 07/20/2023 at 20:03 Approved by: Len Cardona M.D. on 07/20/2023 at 20:04
--- NOTE | 2023-07-20 19:25 | PC.NURSE ---
pt c/o MERCEDES since this morning and took naproxen this morning but cannot recall a time. ambulated to bathroom independently with steady gait.
--- NOTE | 2023-07-20 19:34 | ED_ITS ---
HPI - Chest Pain General Chief Complaint: Chest Pain Stated Complaint: neck pain/chest pressure/sob Time Seen by Provider: 07/20/23 19:15 Source: patient Mode of arrival: Ambulatory Limitations: no limitations History of Present Illness HPI narrative: 28-year-old female who is here for evaluation of chest pressure, shortness of breath, tingling in her toes that started just a couple hours prior to arrival. She would very similar symptoms a couple weeks ago however that time she had abdominal pain with them. She came to the emergency department had evaluation as discharged home. She is been relatively asymptomatic until today. She states her symptoms have improved somewhat since their onset and maximal intensity but have not completely resolved. Has not tried anything for symptoms prior to arrival. Related Data Home Medications Medication Instructions Recorded Confirmed levonorgestrel 21 mcg/24 hours (8 intrauterine 03/12/23 06/12/23 yrs) 52 mg intrauterine device (Mirena) Previous Rx's Medication Instructions Recorded epinephrine 0.3 mg/0.3 mL 0.3 mg (0.3 mL) IM Q5-15M PRN 05/30/22 injection, auto-injector (EpiPen) anaphylaxis #2 ea buspirone 15 mg tablet 15 mg PO BID #180 tabs 11/16/22 clonazepam 0.5 mg tablet 0.25 mg (1/2 x 0.5 mg) PO BID PRN 03/12/23 anxiety #20 tabs dexamethasone 1 mg tablet 1 mg PO ONCE #1 tab 04/11/23 metoprolol succinate 25 mg 25 mg PO DAILY #60 tabs 04/11/23 tablet,extended release 24 hr losartan 100 mg tablet 100 mg PO DAILY #30 tabs 06/12/23 dextroamphetamine-amphetamine 20 20 mg PO BID #60 tabs 06/18/23 mg tablet (Adderall) fluoxetine 20 mg capsule (Prozac) 20 mg PO DAILY #90 caps 06/18/23 Allergies Allergy/AdvReac Type Severity Reaction Status Date / Time hayley Allergy Severe Anaphylaxis Verified 07/20/23 19:18 Review of Systems Review of Systems ROS Unobtainable: All systems reviewed & are unremarkable except as noted in HPI and below Patient History Medical History Heavy menstrual period GI bleeding (~2006) Crohn's disease (~2018) Mixed anxiety and depressive disorder Miscarriage H/O being hospitalized (~2010) Depression Anxiety ADHD Chlamydia Surgical History Anesthesia Delivery by section (~08/15/20) H/O wisdom tooth extraction (~2014) S/P dilation and curettage (~2015) Family History Father Stroke Alcohol abuse Hypertension Hyperlipidemia Mother Cancer History of heart disease Hypertension Hyperlipidemia Mental health problem History of miscarriage Breast cancer Depression Anxiety Grandmother Stroke Grandfather Stomach cancer History of heart disease Hyperlipidemia Hypertension Grandfather Family estrangement Unknown whether patient has any health problems Cancer Grandmother Unknown whether patient has any health problems Cancer Family/Other Mental health problem Brother Hypertension Hyperlipidemia Social History marital status: unmarried,living together household members: significant other pets and animals: Yes (Dog) education level: college occupational status: unemployed current occupational exposures/hazards: No special david needs: No Smoking Status: Former smoker Tobacco: How many years used: 1 second hand exposure: No alcohol intake: current (2-3 drinks/ 2 wks ) substance use type: does not use Smoking Status: Former smoker alcohol intake frequency: holidays/special occasions only Substance Use Type: does not use Exam Initial Vital Signs Initial Vital Signs: Vital Signs Temperature 98.4 F 07/20/23 19:10 Pulse Rate 95 H 07/20/23 19:10 Respiratory Rate 20 07/20/23 19:10 Blood Pressure 156/107 H 07/20/23 19:10 Pulse Oximetry 99 07/20/23 19:10 Oxygen Delivery Method Room Air 07/20/23 19:10 Const General: cooperative, comfortable and No ill appearing HENMT Head: normal to inspection and normocephalic Resp Effort & Inspection: normal respiratory effort Auscultation: clear to auscultation bilaterally Cardio Rate: regular rate Rhythm: regular rhythm GI Inspection: normal to inspection Palpation: soft, No firm and No tender Skin General: no rashes or lesions noted Neuro General: patient alert and patient awake Extrem General: capillary refill normal and No edema Scores HEART Score Heart Score history: Slightly Suspicious Heart Score EKG: Normal Heart Score Age: < 45 years old Heart Score risk factors: 1-2 risk factors Heart Score troponin: < or = to normal limit Heart Score Total: 1 Course Orders Ordered: ED Orders 07/20/23 19:16 XR chest 1V Stat 07/20/23 19:20 Complete Blood Count AUTO DIFF Stat Comprehensive Metabolic Panel Stat D Dimer Stat Lipase Stat Magnesium Stat Troponin & CK Cardiac Panel Stat 07/20/23 19:29 EKG-12 Lead Stat Vital Signs Vital signs: Vital Signs - 8 hr 07/20/23 19:10 07/20/23 20:41 Temperature 98.4 F Pulse Rate 95 H 86 Respiratory Rate 20 16 Blood Pressure 156/107 H 134/82 Pulse Oximetry 99 99 Oxygen Delivery Method Room Air MDM - Chest Pain Lab Data Attestation: I reviewed the patient's lab results. 07/20/23 19:20 07/20/23 19:20 Labs: Lab Results 07/20/23 Range/Units 19:20 WBC 9.4 (4.5-11.0) X10^3/uL RBC 4.94 (4.0-5.2) X10^6/uL Hgb 15.5 (12.0-16.0) g/dL Hct 44.4 (36-46) % MCV 89.9 (80-100) fL MCH 31.3 (26-34) PG MCHC 34.8 (30-36) % RDW 13.2 (11.6-14.8) % Plt Count 386 (150-400) X10^3/uL Neut % (Auto) 58.4 (50-75) % Lymph % (Auto) 33.2 (25-40) % [place] % (Auto) 5.6 (3-14) % Eos % (Auto) 1.7 L (2-4) % Baso % (Auto) 1.1 (0-2) % Neut # (Auto) 5500 (9327-8761) /uL Lymph # (Auto) 3100 (0859-8934) /uL [place] # (Auto) 500 (0-900) /uL Eos # (Auto) 200 (0-450) /uL Baso # (Auto) 100 (0-100) /uL D-Dimer < 215 (<500) ng/ml Sodium 133 L (137-145) mmol/L Potassium 3.6 (3.4-5.1) mmol/L Chloride 98 (98-107) mmol/L Carbon Dioxide 25 (22-32) mmol/L BUN 9 (7-17) mg/dL Creatinine 0.58 (0.52-1.04) mg/dL Estimated GFR > 60 (>60) mL/min BUN/Creatinine Ratio 15.5 (6-22) Glucose 100 (70-100) mg/dL Calcium 10.1 (8.4-10.2) mg/dL Magnesium 2.2 (1.6-2.3) mg/dL Total Bilirubin 0.5 (0.2-1.3) mg/dL AST 37 H (14-36) IU/L ALT 38 H (<35) IU/L Alkaline Phosphatase 72 (38-126) U/L Total Creatine Kinase 133 (30-135) U/L Troponin I < 0.012 (0.01-0.034) ng/mL Total Protein 8.7 H (6.3-8.2) g/dL Albumin 5.0 (3.5-5.0) g/dL Globulin 3.7 (1.7-4.1) g/dL Albumin/Globulin Ratio 1.4 (1.0-2.8) Lipase 68 (23-300) U/L Imaging Data Chest x-ray: Radiologist's Impression: PROCEDURE: XR CHEST 1V INDICATIONS: Chest pain and shortness of breath TECHNIQUE: One view of the chest was acquired. COMPARISON: [facility], , XR CHEST 1V, 05/25/2023, 13:54. FINDINGS: Surgical changes and devices: None. Lungs and pleura: Lungs are clear. No pleural effusions or pneumothorax. Mediastinum: Mediastinal contours appear normal. Heart size is normal. Bones and chest wall: No suspicious bony lesions. Overlying soft tissues appear unremarkable. IMPRESSION: Normal for age, source of current chest pain symptoms is not seen. ECG Data Attestation: I personally reviewed and interpreted this ECG as follows: Interpretation: Sinus rhythm Ventricular rate 92 Normal axis Normal QRS Normal QTC No ST T wave changes MDM Narrative Medical decision making narrative: Low risk heart score. EKGs unremarkable. D-dimer is negative. Chest x-ray is unremarkable. She is neurovascularly intact in her lower extremities. Troponin is negative. Low suspicion for ACS, or PE. Will discharge patient home with instructions to follow-up with primary care doctor. She was given return precautions. She expressed understanding and agreement. Discharge Plan Departure Patient Disposition: Home Clinical Impression: Atypical chest pain, HTN (hypertension) Activity Restrictions/Additional Instructions: Continue to take all of your medications at home. I do recommend that you continue to take your blood pressure at home on a regular basis and record these numbers. Contact your primary doctor for follow-up to discuss your blood pressures to see whether or not you need to make any changes to your home medications. Return to the emergency department for new symptoms. Prescriptions: No Action epinephrine [EpiPen] 0.3 mg/0.3 mL auto-injector 0.3 mg IM Q5-15M PRN (Reason: anaphylaxis) Qty: 2 0RF Rx Instructions: do not exceed 3 doses per episode. Proceed to ED immediately after first administration fluoxetine [Prozac] 20 mg capsule 20 mg PO DAILY Qty: 90 0RF dextroamphetamine-amphetamine [Adderall] 20 mg tablet 20 mg PO BID Qty: 60 0RF Rx Instructions: administer doses at least 4-6 hours apart Mirena 21 mcg/24 hours (8 yrs) 52 mg intrauterine device intrauterine clonazepam 0.5 mg tablet 0.25 mg PO BID PRN (Reason: anxiety) Qty: 20 0RF losartan 100 mg tablet 100 mg PO DAILY Qty: 30 3RF buspirone 15 mg tablet 15 mg PO BID Qty: 180 0RF metoprolol succinate 25 mg tablet extended release 24 hr 25 mg PO DAILY Qty: 60 0RF dexamethasone 1 mg tablet 1 mg PO ONCE Qty: 1 0RF Rx Instructions: Take pill between 11pm and 12 am then come to lab next day at 0800 for lab draw Referrals: Cosmo Baig MD [Primary Care Provider] - Stand Alone Forms: Patient Portal/API
[2023-07-20 19:53] LABS: Add Manual Diff / Slide Review NO; Basophils Absolute Auto 100 /uL (0-100); Basophils Percent Auto 1.1 % (0-2); Eosinophils Absolute Auto 200 /uL (0-450); Eosinophils Percent Auto 1.7 % (2-4); Hematocrit 44.4 % (36-46); Hemoglobin 15.5 g/dL (12.0-16.0); Lymphocytes Absolute Auto 3100 /uL (1100-4500); Lymphocytes Percent Auto 33.2 % (25-40); Mean Corpuscular HGB Conc 34.8 % (30-36); Mean Corpuscular Hemoglobin 31.3 PG (26-34); Mean Corpuscular Volume 89.9 fL (80-100); Monocytes Absolute Auto 500 /uL (0-900); Monocytes Percent Auto 5.6 % (3-14); Neutrophils Absolute Auto 5500 /uL (1500-7000); Neutrophils Percent Auto 58.4 % (50-75); Platelet Count 386 X10^3/uL (150-400); Red Blood Cell Count 4.94 X10^6/uL (4.0-5.2); Red Cell Distribution Width 13.2 % (11.6-14.8); White Blood Cell Count 9.4 X10^3/uL (4.5-11.0)
[2023-07-20 19:57] LABS: Alanine Aminotransferase 38 IU/L (<35); Albumin Globulin Ratio 1.4 (1.0-2.8); Alkaline Phosphatase 72 U/L (38-126); Aspartate Aminotransferase 37 IU/L (14-36); BUN Creatinine Ratio 15.5 (6-22); Bilirubin Total 0.5 mg/dL (0.2-1.3); Blood Urea Nitrogen 9 mg/dL (7-17); Calcium 10.1 mg/dL (8.4-10.2); Carbon Dioxide 25 mmol/L (22-32); Chloride 98 mmol/L (98-107); Creatine Kinase 133 U/L (30-135); Estimated Glomerular Filt Rate > 60 mL/min (>60); Globulin 3.7 g/dL (1.7-4.1); Glucose 100 mg/dL (70-100); HEMOLYSIS < 15 (0-50); Lipase 68 U/L (23-300); Magnesium 2.2 mg/dL (1.6-2.3); Potassium 3.6 mmol/L (3.4-5.1); Sodium 133 mmol/L (137-145); Total Protein 8.7 g/dL (6.3-8.2)
[2023-07-20 20:08] LABS: D Dimer < 215 ng/ml (<500); Troponin I < 0.012 ng/mL (0.01-0.034)
[2023-07-20 20:41] VITALS: BP 134/82; PULSE 86; RESP 16; O2SAT 99
== END 2023-07-20 20:42 | disposition home or self-care (01) ==
PROVIDERS: Emergency Provider Emergency Medicine; PCP Family Medicine
DX: R07.89 Other chest pain (principal); I10 Essential (primary) hypertension
CPT/HCPCS: 36415; 71045; 80053; 82550; 83690; 83735; 84484; 85025; 85379; 93005; 93010; 99283; 99284

== ENCOUNTER 2023-10-28 19:01 | Emergency (ER) | payer OTHER, MEDICAID, SELFPAY ==
[2023-10-28] VITALS (7 sets, daily range): BP systolic 136–160; BP diastolic 82–104; PULSE 67–85; RESP 17–23; TEMP 35.6–36.7; O2SAT 97–100; BMI 38.7
--- NOTE | 2023-10-28 19:15 | DI.RAD.S_ITS ---
PROCEDURE: XR CHEST 1V INDICATIONS: chest pain TECHNIQUE: One view of the chest was acquired. COMPARISON: [facility], CR, XR CHEST 1V, 07/20/2023, 19:27. [facility], CR, XR CHEST 1V, 05/25/2023, 13:54. FINDINGS: Surgical changes and devices: None. Lungs and pleura: Lungs are clear. No pleural effusions or pneumothorax. Mediastinum: Mediastinal contours appear normal. Heart size is normal. Bones and chest wall: No suspicious bony lesions. Overlying soft tissues appear unremarkable. IMPRESSION: No acute cardiopulmonary abnormality is seen. Dictated by: Newton Krishna M.D. on 10/28/2023 at 19:33 Approved by: Newton Krishna M.D. on 10/28/2023 at 19:33
[2023-10-28] MEDS: SODIUM CHLORIDE 0.9% 1,000 ML 1000 ML IV ×2 (20:07→21:42)
[2023-10-28] MEDS: KETOROLAC 30 MG/ML VIAL 15 MG IV (20:07)
--- NOTE | 2023-10-28 20:19 | PC.NURSE ---
Pt reports fuzzy vision on the edges.
[2023-10-28 20:29] LABS: Add Manual Diff / Slide Review NO; Basophils Absolute Auto 100 /uL (0-100); Basophils Percent Auto 0.6 % (0-2); Eosinophils Absolute Auto 300 /uL (0-450); Eosinophils Percent Auto 2.9 % (2-4); Hematocrit 40.7 % (36-46); Hemoglobin 14.2 g/dL (12.0-16.0); Lymphocytes Absolute Auto 3100 /uL (1100-4500); Lymphocytes Percent Auto 34.9 % (25-40); Mean Corpuscular HGB Conc 34.9 % (30-36); Mean Corpuscular Hemoglobin 32.1 PG (26-34); Monocytes Absolute Auto 500 /uL (0-900); Monocytes Percent Auto 5.5 % (3-14); Neutrophils Absolute Auto 4900 /uL (1500-7000); Neutrophils Percent Auto 56.1 % (50-75); Platelet Count 383 X10^3/uL (150-400); Red Blood Cell Count 4.42 X10^6/uL (4.0-5.2); Red Cell Distribution Width 13.2 % (11.6-14.8); White Blood Cell Count 8.8 X10^3/uL (4.5-11.0)
[2023-10-28 20:34] LABS: INR 0.8 (0.9-1.3); Prothrombin Time 9.5 SECONDS (9.4-12.5)
[2023-10-28 20:37] LABS: PTT Partial Thromboplastin Tim 37 SECONDS (25.1-36.5)
[2023-10-28 20:39] LABS: COVID19 -Nasal RAPID Negative (Negative)
[2023-10-28 20:59] LABS: Urine Volume 10mL (spun)
[2023-10-28 21:00] LABS: Bacteria Urine None Seen; RBC Urine None Seen (0-5/HPF); Squamous Epithelial Cell Urine None Seen (0-5/HPF); WBC Urine None Seen (0-5/HPF)
[2023-10-28 21:14] LABS: Alanine Aminotransferase 29 IU/L (<35); Albumin 4.9 g/dL (3.5-5.0); Albumin Globulin Ratio 1.5 (1.0-2.8); BUN Creatinine Ratio 29.5 (6-22); Bilirubin Total 0.6 mg/dL (0.2-1.3); Blood Urea Nitrogen 18 mg/dL (7-17); Calcium 9.7 mg/dL (8.4-10.2); Carbon Dioxide 19 mmol/L (22-32); Chloride 103 mmol/L (98-107); Creatine Kinase 222 U/L (30-135); Estimated Glomerular Filt Rate > 60 mL/min (>60); Globulin 3.3 g/dL (1.7-4.1); Glucose 88 mg/dL (70-100); Lipase 82 U/L (23-300); Sodium 134 mmol/L (137-145); Total Protein 8.2 g/dL (6.3-8.2)
--- NOTE | 2023-10-28 21:19 | ED.HA ---
HPI - Headache General Chief Complaint: Headache Stated Complaint: chest pressure/headaches Time Seen by Provider: 10/28/23 21:17 Mode of arrival: Ambulatory History of Present Illness HPI Narrative: Patient is a 28-year-old female history of ADHD, anxiety, hypertension presenting today with headache ongoing for the last 2 weeks. She says it comes and goes some days it is more intense than normal. Yesterday she felt like she could not even get out of bed. She reports significant fatigue sleeping as often as she can. She sleeps throughout the night she sleeps during her child's naps. If she could sleep all day she would. She has no sore throat she has not had any fever. Sometimes she has some neck pain but no numbness or tingling. She occasionally has nausea but no significant vomiting. She noticed some chest heaviness really not having a lot of chest pain. He has been taking Tylenol Motrin at home without any sort of significant relief. She reports her headache now has a dull ache. No significant elevation in blood pressure today. She denies any recent medication changes. She does have a history of headaches but not quite like this Related Data Home Medications Medication Instructions Recorded Confirmed levonorgestrel 21 mcg/24 hours (8 intrauterine 03/12/23 10/28/23 yrs) 52 mg intrauterine device (Mirena) Previous Rx's Medication Instructions Recorded epinephrine 0.3 mg/0.3 mL 0.3 mg (0.3 mL) IM Q5-15M PRN 05/30/22 injection, auto-injector (EpiPen) anaphylaxis #2 ea clonazepam 0.5 mg tablet 0.25 mg (1/2 x 0.5 mg) PO BID PRN 10/01/23 anxiety #20 tabs dextroamphetamine-amphetamine 30 30 mg PO BID #60 tabs 10/01/23 mg tablet (Adderall) fluoxetine 20 mg capsule (Prozac) 20 mg PO DAILY #90 caps 10/01/23 losartan 100 mg tablet 100 mg PO DAILY #90 tabs 10/01/23 metoprolol succinate 25 mg 25 mg PO DAILY #90 tabs 10/01/23 tablet,extended release 24 hr ondansetron 4 mg disintegrating 4 mg PO Q8H PRN nausea and 10/28/23 tablet vomiting #20 tabs Allergies Allergy/AdvReac Type Severity Reaction Status Date / Time hayley Allergy Severe Anaphylaxis Verified 10/28/23 18:41 Patient History Medical History Heavy menstrual period GI bleeding (~2006) Crohn's disease (~2018) Mixed anxiety and depressive disorder Miscarriage H/O being hospitalized (~2010) Depression Anxiety ADHD Chlamydia Surgical History Anesthesia Delivery by section (~08/15/20) S/P dilation and curettage (~2015) H/O wisdom tooth extraction (~2014) Family History Father Stroke Alcohol abuse Hypertension Hyperlipidemia Mother Cancer History of heart disease Hypertension Hyperlipidemia Mental health problem History of miscarriage Breast cancer Depression Anxiety Grandmother Stroke Grandfather Stomach cancer History of heart disease Hyperlipidemia Hypertension Grandfather Family estrangement Unknown whether patient has any health problems Cancer Grandmother Unknown whether patient has any health problems Cancer Family/Other Mental health problem Brother Hypertension Hyperlipidemia Social History marital status: unmarried,living together household members: significant other pets and animals: Yes (Dog) education level: college occupational status: unemployed current occupational exposures/hazards: No special david needs: No Smoking Status: Former smoker Tobacco: How many years used: 1 second hand exposure: No alcohol intake: current (2-3 drinks/ 2 wks ) substance use type: does not use Smoking Status: Former smoker alcohol intake frequency: a few times a month Substance Use Type: does not use Exam Initial Vital Signs Initial Vital Signs: Vital Signs Temperature 96.1 F L 10/28/23 19:03 Pulse Rate 85 10/28/23 19:03 Respiratory Rate 18 10/28/23 19:03 Blood Pressure 143/100 H 10/28/23 19:03 Pulse Oximetry 99 10/28/23 19:03 Oxygen Delivery Method Room Air 10/28/23 19:03 GENERAL: Alert well-appearing 28-year-old female and in no acute distress. HEENT: Head atraumatic,EOMI, pupils reactive, face symmetric, moist mucous membranes Neck supple without meningeal signs CARDIOVASCULAR: Regular rate and rhythm without murmurs, rubs or gallops. RESPIRATORY: Breath sounds equal bilaterally, no wheezes rales or rhonchi. ABDOMEN: Soft, nontender. Normoactive bowel sounds all 4 quadrants. No guarding or rebound. EXTREMITIES: Normal range of motion, no clubbing or edema. Neurovascularly intact NEUROLOGICAL: Alert and oriented x4.Normal gait and speech. Cranial nerves II through XII grossly intact. SKIN: Warm, dry, no laceration, no petechiae, no rashes or lesions. Course Orders Ordered: ED Orders 10/28/23 19:15 XR chest 1V Stat EKG-12 Lead Stat 10/28/23 19:44 Urine Culture Stat Urine Microscopic Stat 10/28/23 20:00 Complete Blood Count AUTO DIFF Stat Comprehensive Metabolic Panel Stat Lipase Stat Magnesium Stat Monotest Stat PTT Partial Thromboplastin Pete Stat Prothrombin Time INR Stat Troponin & CK Cardiac Panel Stat 10/28/23 20:11 COVID19 -Nasal RAPID Stat 10/28/23 21:29 CT head/brain wo con Stat Discontinued Medications Sodium Chloride (Normal Saline 0.9%) 1,000 mls @ 1,000 mls/hr IV BOLUS ONE Stop: 10/28/23 20:14 Last Infusion: 10/28/23 21:13 Dose: Infused Documented By: Admin: 10/28/23 20:07 Dose: 1,000 mls/hr Documented By: LEO Sodium Chloride (Normal Saline 0.9%) 1,000 mls @ 1,000 mls/hr IV BOLUS ONE Stop: 10/28/23 22:30 Last Infusion: 10/28/23 22:47 Dose: Infused Documented By: Admin: 10/28/23 21:42 Dose: 1,000 mls/hr Documented By: SUMA Ketorolac Tromethamine (Ketorolac 30 Mg/Ml Vial) 15 mg IV NOW ONE Stop: 10/28/23 19:16 Last Admin: 10/28/23 20:07 Dose: 15 mg Documented By: LEO Vital Signs Vital signs: Vital Signs - 8 hr 10/28/23 19:03 10/28/23 20:01 10/28/23 20:30 Temperature 96.1 F L 98.0 F Pulse Rate 85 74 Respiratory Rate 18 Blood Pressure 143/100 H 136/82 Pulse Oximetry 99 99 Oxygen Delivery Method Room Air 10/28/23 20:30 10/28/23 21:00 10/28/23 21:00 Temperature Pulse Rate 67 80 Respiratory Rate 23 21 Blood Pressure 146/104 H Pulse Oximetry 98 97 Oxygen Delivery Method 10/28/23 21:30 10/28/23 21:30 10/28/23 22:00 Temperature Pulse Rate 81 Respiratory Rate 22 Blood Pressure 159/89 H 160/96 H Pulse Oximetry 97 Oxygen Delivery Method Room Air 10/28/23 22:00 10/28/23 22:30 Temperature Pulse Rate 82 Respiratory Rate 17 Blood Pressure 142/89 H Pulse Oximetry 100 Oxygen Delivery Method Room Air MDM - Headache Lab Data 10/28/23 20:00 10/28/23 20:00 Labs: Lab Results 10/28/23 10/28/23 10/28/23 Range/Units 19:44 20:00 20:11 WBC 8.8 (4.5-11.0) X10^3/uL RBC 4.42 (4.0-5.2) X10^6/uL Hgb 14.2 (12.0-16.0) g/dL Hct 40.7 (36-46) % MCV 92.0 (80-100) fL MCH 32.1 (26-34) PG MCHC 34.9 (30-36) % RDW 13.2 (11.6-14.8) % Plt Count 383 (150-400) X10^3/uL Neut % (Auto) 56.1 (50-75) % Lymph % (Auto) 34.9 (25-40) % [place] % (Auto) 5.5 (3-14) % Eos % (Auto) 2.9 (2-4) % Baso % (Auto) 0.6 (0-2) % Neut # (Auto) 4900 (6808-0766) /uL Lymph # (Auto) 3100 (4560-4853) /uL [place] # (Auto) 500 (0-900) /uL Eos # (Auto) 300 (0-450) /uL Baso # (Auto) 100 (0-100) /uL PT 9.5 (9.4-12.5) SECONDS INR 0.8 L (0.9-1.3) APTT 37 H (25.1-36.5) SECONDS Sodium 134 L (137-145) mmol/L Potassium 4.2 (3.4-5.1) mmol/L Chloride 103 (98-107) mmol/L Carbon Dioxide 19 L (22-32) mmol/L BUN 18 H (7-17) mg/dL Creatinine 0.61 (0.52-1.04) mg/dL Estimated GFR > 60 (>60) mL/min BUN/Creatinine Ratio 29.5 H (6-22) Glucose 88 (70-100) mg/dL Calcium 9.7 (8.4-10.2) mg/dL Magnesium 2.1 (1.6-2.3) mg/dL Total Bilirubin 0.6 (0.2-1.3) mg/dL AST 42 H (14-36) IU/L ALT 29 (<35) IU/L Alkaline Phosphatase 99 (38-126) U/L Total Creatine Kinase 222 H (30-135) U/L Troponin I < 0.012 (0.01-0.034) ng/mL Total Protein 8.2 (6.3-8.2) g/dL Albumin 4.9 (3.5-5.0) g/dL Globulin 3.3 (1.7-4.1) g/dL Albumin/Globulin Ratio 1.5 (1.0-2.8) Lipase 82 (23-300) U/L Urine RBC None seen (0-5/HPF) Urine WBC None seen (0-5/HPF) Ur Squamous Epith Cells None seen (0-5/HPF) Urine Bacteria None seen (None) Vol Urine Centrifuged 10ml (spun) SARS-CoV-2 (PCR) Negative (Negative) Monoscreen Negative (Negative) Point of Care Testing Test Results Negative Urine Dip Bedside Urine Glucose Negative Bedside Urine Bilirubin - Negative Bedside Urine Ketone - Negative Urine Specific [place] 1.005 Bedside Urine Occult Blood +/- Bedside Urine pH 6.0 Bedside Urine Protein - Negative Bedside Urine Urobilinogen - Negative Bedside Urine Nitrite - Negative Bedside Urine Leukocytes - Negative Esterase Imaging Data Chest x-ray: Radiologist's Impression: PROCEDURE: XR CHEST 1V INDICATIONS: chest pain TECHNIQUE: One view of the chest was acquired. COMPARISON: [facility], CR, XR CHEST 1V, 07/20/2023, 19:27. [facility], CR, XR CHEST 1V, 05/25/2023, 13:54. FINDINGS: Surgical changes and devices: None. Lungs and pleura: Lungs are clear. No pleural effusions or pneumothorax. Mediastinum: Mediastinal contours appear normal. Heart size is normal. Bones and chest wall: No suspicious bony lesions. Overlying soft tissues appear unremarkable. IMPRESSION: No acute cardiopulmonary abnormality is seen. Dictated by: Newton Krishna M.D. on 10/28/2023 at 19:33 CT scan - head: Radiologist's Impression: PROCEDURE: CT HEAD/BRAIN WO CON INDICATIONS: headache for 3 weeks TECHNIQUE: Noncontrast 4.5 mm thick angled axial sections acquired from the foramen magnum to the vertex, with coronal and sagittal reformats. For radiation dose reduction, the following was used: automated exposure control, adjustment of mA and/or kV according to patient size. COMPARISON: None. FINDINGS: Image quality: Diagnostic. CSF spaces: Basal cisterns are patent. No extra-axial fluid collections. Ventricles are normal in size and shape. Brain: No midline shift. No intracranial masses or hemorrhage. [place]-white matter interface is normal. Skull and face: Calvarium and visualized facial bones are intact, without suspicious lesions. Sinuses: Visualized sinuses and mastoids are clear. IMPRESSION: No CT evidence of acute intracranial process. Dictated by: Ibeth Hart M.D. on 10/28/2023 at 22:14 ECG Data Interpretation: Normal sinus rhythm rate 73 [place] interval 156 QRS [address] changes no T-wave inversions no signs of ischemia MDM Narrative Medical decision making narrative: Patient is a 28-year-old female history of hypertension presenting today with ongoing headache about the last 3 weeks. Currently headache is a dull ache but yesterday was much worse. She has no focal deficits. She has not had any fever but is having increased fatigue. Blood work has been reviewed clinical significant values include bicarb 19, BUN 18 creatinine 0.61, mono test negative, COVID test negative troponin negative Head CT and chest x-ray have been reviewed and negative EKG reviewed At this time patient is having increased chronic fatigue with unknown cause with ongoing headache. Currently headache is dull ache she has no focal deficits with a negative head CT. She is some mild neck pain without fever does not appear to have meningitis although viral meningitis still possible though I think unlikely without fever and minimal neck pain. At this time I do recommend outpatient follow-up may need to see a migraine specialist and have further evaluation and workup. Discharge Plan Departure Patient Disposition: Home Clinical Impression: Migraine Instructions: DI for Migraine Activity Restrictions/Additional Instructions: *You have been diagnosed with migraine *What to do: At this time please follow up with primary care provider he may require further workup for your ongoing fatigue. [place] test and COVID are negative today *Continue to take medications as directed Tylenol/Motrin as needed Zofran 4 mg every 8 hours if needed for nausea or vomiting--> *Follow up with your primary care provider in 2-3 days or call [phone] *Return to ER if you should have increasing headache numbness tingling weakness neck pain fever or any new, worsening or concerning symptoms Prescriptions: New ondansetron 4 mg tablet,disintegrating 4 mg PO Q8H PRN (Reason: nausea and vomiting) Qty: 20 0RF No Action epinephrine [EpiPen] 0.3 mg/0.3 mL auto-injector 0.3 mg IM Q5-15M PRN (Reason: anaphylaxis) Qty: 2 0RF Rx Instructions: do not exceed 3 doses per episode. Proceed to ED immediately after first administration Mirena 21 mcg/24 hours (8 yrs) 52 mg intrauterine device intrauterine losartan 100 mg tablet 100 mg PO DAILY Qty: 90 3RF metoprolol succinate 25 mg tablet extended release 24 hr 25 mg PO DAILY Qty: 90 3RF fluoxetine [Prozac] 20 mg capsule 20 mg PO DAILY Qty: 90 3RF dextroamphetamine-amphetamine [Adderall] 30 mg tablet 30 mg PO BID Qty: 60 0RF Rx Instructions: administer doses at least 4-6 hours apart clonazepam 0.5 mg tablet 0.25 mg PO BID PRN (Reason: anxiety) Qty: 20 0RF Referrals: Cosmo Baig MD [Primary Care Provider] - Stand Alone Forms: Patient Portal/API
[2023-10-28 21:23] LABS: HEMOLYSIS 73 (0-50); Potassium 4.2 mmol/L (3.4-5.1)
[2023-10-28 21:24] LABS: Alkaline Phosphatase 99 U/L (38-126); Aspartate Aminotransferase 42 IU/L (14-36); Magnesium 2.1 mg/dL (1.6-2.3)
[2023-10-28 21:25] LABS: Troponin I < 0.012 ng/mL (0.01-0.034)
--- NOTE | 2023-10-28 21:29 | DI.CT.S_ITS ---
PROCEDURE: CT HEAD/BRAIN WO CON INDICATIONS: headache for 3 weeks TECHNIQUE: Noncontrast 4.5 mm thick angled axial sections acquired from the foramen magnum to the vertex, with coronal and sagittal reformats. For radiation dose reduction, the following was used: automated exposure control, adjustment of mA and/or kV according to patient size. COMPARISON: None. FINDINGS: Image quality: Diagnostic. CSF spaces: Basal cisterns are patent. No extra-axial fluid collections. Ventricles are normal in size and shape. Brain: No midline shift. No intracranial masses or hemorrhage. [place]az[place]-white matter interface is normal. Skull and face: Calvarium and visualized facial bones are intact, without suspicious lesions. Sinuses: Visualized sinuses and mastoids are clear. IMPRESSION: No CT evidence of acute intracranial process. Dictated by: Ibeth Hart M.D. on 10/28/2023 at 22:14 Approved by: Ibeth Hart M.D. on 10/28/2023 at 22:15
[2023-10-28 21:59] LABS: Monotest Negative (Negative)
== END 2023-10-28 22:57 | disposition home or self-care (01) ==
PROVIDERS: Emergency Provider Emergency Medicine; PCP Family Medicine
DX: G43.909 Migraine, unspecified, not intractable, without status migrainosus (principal); R07.9 Chest pain, unspecified; Z20.822 Contact with and (suspected) exposure to COVID-19
CPT/HCPCS: 36415; 70450; 71045; 80053; 81003; 81015; 81025; 82550; 83690; 83735; 84484; 85025; 85610; 85730; 86318; 87086; 87635; 93005; 93010; 96361; 96374; 99284; J1885

== ENCOUNTER → 2023-12-03 09:24 | Outpatient (CLI) | payer OTHER, MEDICAID, SELFPAY ==
[2023-12-03 10:09] LABS: Add Manual Diff / Slide Review NO; Basophils Absolute Auto 0 /uL (0-100); Basophils Percent Auto 0.8 % (0-2); Eosinophils Absolute Auto 100 /uL (0-450); Eosinophils Percent Auto 2.5 % (2-4); Hematocrit 41.7 % (36-46); Hemoglobin 14.4 g/dL (12.0-16.0); Lymphocytes Absolute Auto 1900 /uL (1100-4500); Lymphocytes Percent Auto 35.9 % (25-40); Mean Corpuscular HGB Conc 34.4 % (30-36); Mean Corpuscular Volume 90.1 fL (80-100); Monocytes Absolute Auto 300 /uL (0-900); Monocytes Percent Auto 6.1 % (3-14); Neutrophils Absolute Auto 3000 /uL (1500-7000); Neutrophils Percent Auto 54.7 % (50-75); Platelet Count 406 X10^3/uL (150-400); Red Blood Cell Count 4.63 X10^6/uL (4.0-5.2); Red Cell Distribution Width 12.5 % (11.6-14.8); White Blood Cell Count 5.4 X10^3/uL (4.5-11.0)
[2023-12-03 10:16] LABS: Hemoglobin A1C% w Est Avg Glu 5.3 % (4.0-6.0)
[2023-12-03 10:59] LABS: Alanine Aminotransferase 31 IU/L (<35); Albumin 4.7 g/dL (3.5-5.0); Albumin Globulin Ratio 1.6 (1.0-2.8); Alkaline Phosphatase 65 U/L (38-126); Aspartate Aminotransferase 29 IU/L (14-36); BUN Creatinine Ratio 28.4 (6-22); Bilirubin Total 0.6 mg/dL (0.2-1.3); Blood Urea Nitrogen 19 mg/dL (7-17); Calcium 9.3 mg/dL (8.4-10.2); Carbon Dioxide 28 mmol/L (22-32); Chloride 101 mmol/L (98-107); Cholesterol 209 mg/dL (140-199); Estimated Glomerular Filt Rate > 60 mL/min (>60); Glucose 100 mg/dL (70-100); HDL Cholesterol 61 mg/dL (40-60); HEMOLYSIS < 15 (0-50); LDL Cholesterol Calculated 134 mg/dL (<100); Potassium 3.7 mmol/L (3.4-5.1); Sodium 136 mmol/L (137-145); Total Protein 7.7 g/dL (6.3-8.2); Triglycerides 69 mg/dL (35-150)
[2023-12-03 11:24] LABS: TSH w/ Reflex to FT4 1.49 uIU/mL (0.47-4.68)
[2023-12-03 13:30] LABS: Creatinine Urine Random 77.2 mg/dL
[2023-12-03 13:33] LABS: Microalbumin Urine Random 0.7 mg/dL (0-1.6)
== END ==
PROVIDERS: PCP Family Medicine; Referring Provider Family Medicine; Visit Provider Family Medicine
DX: I10 Essential (primary) hypertension (principal); F41.9 Anxiety disorder, unspecified; F90.9 Attention-deficit hyperactivity disorder, unspecified type; R63.5 Abnormal weight gain
CPT/HCPCS: 36415; 80053; 80061; 82043; 82570; 83036; 84443; 85025

== ENCOUNTER → 2024-02-28 15:55 | Outpatient (CLI) | payer OTHER, MEDICAID, SELFPAY ==
[2024-02-28 16:41] LABS: Pregnancy Test Urine Negative (Negative)
== END ==
PROVIDERS: PCP Family Medicine; Referring Provider Family Medicine; Visit Provider Family Medicine
DX: Z30.09 Encounter for other general counseling and advice on contraception (principal)
CPT/HCPCS: 81025

== ENCOUNTER 2024-07-26 11:49 | Emergency (ER) | payer OTHER, SELFPAY ==
[2024-07-26 12:00] VITALS: BP 174/106; PULSE 91; RESP 18; TEMP 37.1; O2SAT 100; BMI 34.0
[2024-07-26 12:29] VITALS: BP 185/128; PULSE 92; O2SAT 100
[2024-07-26 12:30] VITALS: BP 179/115; O2SAT 100
[2024-07-26 12:32] LABS: Bacteria Urine Occasional (0-1); Culture Indicated Urine Specimen Cultured; RBC Urine 0-1/HPF (0-5/HPF); Squamous Epithelial Cell Urine 0-1 /HPF (0-5/HPF); Urine Volume 10mL (spun); WBC Urine 0-1/HPF (0-5/HPF)
[2024-07-26 12:39] LABS: Add Manual Diff / Slide Review NO; Basophils Absolute Auto 100 /uL (0-100); Basophils Percent Auto 0.8 % (0-2); Eosinophils Absolute Auto 100 /uL (0-450); Eosinophils Percent Auto 0.8 % (2-4); Hematocrit 44.5 % (36-46); Hemoglobin 15.4 g/dL (12.0-16.0); Lymphocytes Absolute Auto 2000 /uL (1100-4500); Mean Corpuscular HGB Conc 34.5 % (30-36); Mean Corpuscular Hemoglobin 31.7 PG (26-34); Mean Corpuscular Volume 91.8 fL (80-100); Monocytes Absolute Auto 300 /uL (0-900); Neutrophils Absolute Auto 5600 /uL (1500-7000); Neutrophils Percent Auto 69.4 % (50-75); Platelet Count 387 X10^3/uL (150-400); Red Blood Cell Count 4.85 X10^6/uL (4.0-5.2); Red Cell Distribution Width 13.5 % (11.6-14.8); White Blood Cell Count 8.1 X10^3/uL (4.5-11.0)
[2024-07-26 12:48] LABS: Alanine Aminotransferase 23 IU/L (<35); Albumin 5.1 g/dL (3.5-5.0); Albumin Globulin Ratio 1.6 (1.0-2.8); Alkaline Phosphatase 70 U/L (38-126); Aspartate Aminotransferase 26 IU/L (14-36); BUN Creatinine Ratio 13.3 (6-22); Bilirubin Total 0.5 mg/dL (0.2-1.3); Blood Urea Nitrogen 8 mg/dL (7-17); Calcium 9.6 mg/dL (8.4-10.2); Carbon Dioxide 22 mmol/L (22-32); Chloride 101 mmol/L (98-107); Estimated Glomerular Filt Rate > 60 mL/min (>60); Globulin 3.2 g/dL (1.7-4.1); Glucose 110 mg/dL (70-100); HEMOLYSIS < 15 (0-50); Lipase 61 U/L (23-300); Potassium 3.7 mmol/L (3.4-5.1); Sodium 136 mmol/L (137-145); Total Protein 8.3 g/dL (6.3-8.2)
[2024-07-26 13:05] VITALS: BP 174/122; PULSE 90; O2SAT 100
[2024-07-26 13:30] VITALS: BP 160/111; PULSE 86; O2SAT 100
--- NOTE | 2024-07-26 13:52 | ED.ABDPAIN ---
HPI - Abdominal Pain General Chief Complaint: Abdominal Pain Stated Complaint: abd pain high blood pressure frm walk in clinic Time Seen by Provider: 07/26/24 13:45 Source: patient Mode of arrival: Wheelchair History of Present Illness HPI narrative: Patient is a 29-year-old female presenting today with ongoing left upper quadrant pain. Hurts under her ribs. She has decrease in appetite no significant nausea she has been taking ibuprofen without any sort of relief. She has a extreme fatigue but no fever. No real flank pain or significant lower abdominal pain. No one else is sick at home. She isn't really having chest pain. Dad has had strokes previously. She has not traveled anywhere recently she is currently on control. No history of blood clots. She says sometimes the pain hurts so bad that she was short of breath but not typically short of breath. Related Data Previous Rx's Medication Instructions Recorded epinephrine 0.3 mg/0.3 mL 0.3 mg (0.3 mL) IM Q5-15M PRN 05/30/22 injection, auto-injector (EpiPen) anaphylaxis #2 ea clonazepam 0.5 mg tablet 0.25 mg (1/2 x 0.5 mg) PO BID PRN 10/01/23 anxiety #20 tabs fluoxetine 20 mg capsule (Prozac) 20 mg PO DAILY #90 caps 10/01/23 losartan 100 mg tablet 100 mg PO DAILY #90 tabs 10/01/23 metoprolol succinate 25 mg 25 mg PO DAILY #90 tabs 10/01/23 tablet,extended release 24 hr ondansetron 4 mg disintegrating 4 mg PO Q8H PRN nausea and 10/28/23 tablet vomiting #20 tabs desogestrel-e.estradiol 0.15 1 tab PO DAILY #84 tabs 03/02/24 mg-0.02 mg(21)/e.estrad 0.01 mg(5) tablet (Kariva (28)) dextroamphetamine-amphetamine 30 30 mg PO BID #60 tabs 04/13/24 mg tablet (Adderall) dextroamphetamine-amphetamine 30 30 mg PO BID #60 tabs 04/13/24 mg tablet (Adderall) dextroamphetamine-amphetamine 30 30 mg PO BID #60 tabs 04/13/24 mg tablet (Adderall) hydrocodone 5 mg-acetaminophen 325 1 tab PO Q6H PRN pain #10 tabs 07/26/24 mg tablet omeprazole 20 mg capsule,delayed 20 mg PO DAILY #30 caps 07/26/24 release ondansetron 4 mg disintegrating 4 mg PO Q8H PRN nausea and 07/26/24 tablet vomiting #10 tabs Allergies Allergy/AdvReac Type Severity Reaction Status Date / Time hayley Allergy Severe Anaphylaxis Verified 07/26/24 12:05 Patient History Medical History Heavy menstrual period GI bleeding (~2006) Crohn's disease (~2018) Mixed anxiety and depressive disorder Miscarriage H/O being hospitalized (~2010) Depression Anxiety ADHD Chlamydia Surgical History Anesthesia Delivery by section (~08/15/20) S/P dilation and curettage (~2015) H/O wisdom tooth extraction (~2014) Family History Father Stroke Alcohol abuse Hypertension Hyperlipidemia Mother Cancer History of heart disease Hypertension Hyperlipidemia Mental health problem History of miscarriage Breast cancer Depression Anxiety Grandmother Stroke Grandfather Stomach cancer History of heart disease Hyperlipidemia Hypertension Grandfather Family estrangement Unknown whether patient has any health problems Cancer Grandmother Unknown whether patient has any health problems Cancer Family/Other Mental health problem Brother Hypertension Hyperlipidemia Social History marital status: unmarried,living together household members: significant other pets and animals: Yes (Dog) education level: college occupational status: unemployed current occupational exposures/hazards: No special david needs: No Smoking Status: Former smoker Tobacco: How many years used: 1 second hand exposure: No alcohol intake: current (2-3 drinks/ 2 wks ) substance use type: does not use Smoking Status: Former smoker alcohol intake frequency: a few times a month Substance Use Type: does not use Exam Initial Vital Signs Initial Vital Signs: Vital Signs Temperature 98.8 F 07/26/24 12:00 Pulse Rate 91 H 07/26/24 12:00 Respiratory Rate 18 07/26/24 12:00 Blood Pressure 174/106 H 07/26/24 12:00 Pulse Oximetry 100 07/26/24 12:00 Oxygen Delivery Method Room Air 07/26/24 12:00 GENERAL: Alert 29-year-old female and in no acute distress. HEENT: Head atraumatic,EOMI, pupils reactive, face symmetric, moist mucous membranes CARDIOVASCULAR: Regular rate and rhythm without murmurs, rubs or gallops. RESPIRATORY: Breath sounds equal bilaterally, no wheezes rales or rhonchi. ABDOMEN: Soft, nontender. Normoactive bowel sounds all 4 quadrants. No guarding or rebound. Tender left upper quadrant no splenomegaly appreciated no distention no epigastric pain negative Weir's sign no lower quadrant pain : No CVA tenderness EXTREMITIES: Normal range of motion, no clubbing or edema. Neurovascularly intact NEUROLOGICAL: Alert and oriented x4.Normal gait and speech. Cranial nerves II through XII grossly intact. SKIN: Warm, dry, no laceration, no petechiae, no rashes or lesions. Course Orders Ordered: ED Orders 07/26/24 12:19 Urine Culture Stat Urine Microscopic Stat 07/26/24 12:30 Complete Blood Count AUTO DIFF Stat Comprehensive Metabolic Panel Stat Lipase Stat 07/26/24 14:06 EKG-12 Lead Stat Discontinued Medications Ondansetron HCl (Ondansetron 4 Mg/2 Ml Inj) 4 mg IV NOW PRN PRN Reason: Nausea And Vomiting Ondansetron HCl (Ondansetron 4 Mg Odt) 4 mg PO NOW PRN PRN Reason: Nausea And Vomiting Vital Signs Vital signs: Vital Signs - 8 hr 07/26/24 12:00 07/26/24 12:29 07/26/24 12:29 Temperature 98.8 F Pulse Rate 91 H 92 H Respiratory Rate 18 Blood Pressure 174/106 H 185/128 H Pulse Oximetry 100 100 Oxygen Delivery Method Room Air 07/26/24 12:30 07/26/24 12:30 07/26/24 13:05 Temperature Pulse Rate Respiratory Rate Blood Pressure 179/115 H 174/122 H Pulse Oximetry 100 Oxygen Delivery Method 07/26/24 13:05 07/26/24 13:30 07/26/24 13:30 Temperature Pulse Rate 90 86 Respiratory Rate Blood Pressure 160/111 H Pulse Oximetry 100 100 Oxygen Delivery Method Room Air 07/26/24 14:00 07/26/24 14:00 Temperature Pulse Rate 91 H Respiratory Rate Blood Pressure 160/111 H Pulse Oximetry 100 Oxygen Delivery Method MDM - Abdominal Pain Lab Data 07/26/24 12:30 07/26/24 12:30 Labs: Lab Results 07/26/24 07/26/24 Range/Units 12:19 12:30 WBC 8.1 (4.5-11.0) X10^3/uL RBC 4.85 (4.0-5.2) X10^6/uL Hgb 15.4 (12.0-16.0) g/dL Hct 44.5 (36-46) % MCV 91.8 (80-100) fL MCH 31.7 (26-34) PG MCHC 34.5 (30-36) % RDW 13.5 (11.6-14.8) % Plt Count 387 (150-400) X10^3/uL Neut % (Auto) 69.4 (50-75) % Lymph % (Auto) 25.0 (25-40) % Christian % (Auto) 4.0 (3-14) % Eos % (Auto) 0.8 L (2-4) % Baso % (Auto) 0.8 (0-2) % Neut # (Auto) 5600 (3414-8366) /uL Lymph # (Auto) 2000 (5181-8653) /uL Christian # (Auto) 300 (0-900) /uL Eos # (Auto) 100 (0-450) /uL Baso # (Auto) 100 (0-100) /uL Sodium 136 L (137-145) mmol/L Potassium 3.7 (3.4-5.1) mmol/L Chloride 101 (98-107) mmol/L Carbon Dioxide 22 (22-32) mmol/L BUN 8 (7-17) mg/dL Creatinine 0.60 (0.52-1.04) mg/dL Estimated GFR > 60 (>60) mL/min BUN/Creatinine Ratio 13.3 (6-22) Glucose 110 H (70-100) mg/dL Calcium 9.6 (8.4-10.2) mg/dL Total Bilirubin 0.5 (0.2-1.3) mg/dL AST 26 (14-36) IU/L ALT 23 (<35) IU/L Alkaline Phosphatase 70 (38-126) U/L Total Protein 8.3 H (6.3-8.2) g/dL Albumin 5.1 H (3.5-5.0) g/dL Globulin 3.2 (1.7-4.1) g/dL Albumin/Globulin Ratio 1.6 (1.0-2.8) Lipase 61 (23-300) U/L Urine RBC 0-1/hpf (0-5/HPF) Urine WBC 0-1/hpf (0-5/HPF) Ur Squamous Epith Cells 0-1 /hpf (0-5/HPF) Urine Bacteria Occasional (0-1) (None) Ur Culture Indicated? Specimen cultured Vol Urine Centrifuged 10ml (spun) Point of care testing: Point of Care Testing Test Results Negative Urine Dip Bedside Urine Glucose Negative Bedside Urine Bilirubin - Negative Bedside Urine Ketone - Negative Urine Specific Chappell 1.005 Bedside Urine Occult Blood +/- Bedside Urine pH 6.5 Bedside Urine Protein - Negative Bedside Urine Urobilinogen - Negative Bedside Urine Nitrite - Negative Bedside Urine Leukocytes - Negative Esterase ECG Data Attestation: I personally reviewed and interpreted this ECG as follows: Interpretation: Normal sinus rhythm rate 84 OK interval 118 QRS [address] changes MDM Narrative Medical decision making narrative: Patient is a 28-year-old female presenting today with left upper quadrant pain. She has been there for about a week a week not getting any better with ibuprofen. Differential diagnosis gastritis spleen issue peptic ulcer nephrolithiasis cholelithiasis Blood work has been reviewed she has no leukocytosis anemia electrolyte abnormalities liver enzymes or elevated bilirubin Bedside ultrasound done by myself no obvious free fluid Patient is extremely fatigued tired without fever or sign of infection. Her urine does not show any evidence of or UTI. She has offered no Bradley here she has had it before but declines at this time. At this time I recommend that she take omeprazole daily treating for gastritis avoid NSAIDs intake Tylenol or Bradley as needed for pain. If pain is persistent or getting worse then return to ED for further evaluation and possible imaging. Discussion of plan with patient and has been which both agreed Discharge Plan Departure Patient Disposition: Home Clinical Impression: Gastritis Instructions: DI for Peptic Ulcer Activity Restrictions/Additional Instructions: *You have been diagnosed with possible ulcer *What to do: At this time I would avoid ibuprofen Advil and a leave. *Continue to take medications as directed Omeprazole 20 mg twice a day for 2 weeks Bradley 1 tablet every 6 hours if needed for severe pain or at night help you sleep (this has Tylenol in it) Tylenol 1000 mg every 6 hours only if needed for edsg-do-ugombyzy Zofran 4 mg every 8 hours for nausea or vomiting *Follow up with your primary care provider in 2-3 days or call [phone] *Return to ER if you should have increasing pain black stool [or] any new, worsening or concerning symptoms CONTROLLED SUBSTANCE DISCHARGE (Narcotoic/benzodiazepine/Flexeril/Phenergan) 1. You have been prescribed narcotic medications, it does have acetaminophen/Tylenol/paracetamol in it, DO NOT TAKE MORE THAN 4,00mg in 24 hours of Tylenol. TRAMADOL DOES NOT CONTAIN TYLENOL 2. Please understand that we cannot provide further refills of narcotics, benzodiazepines or controlled substances through the ED and her pain management will need to be through your provider. 3. While on these medications you cannot drive or operate heavy machinery. 4. You cannot sign legal documents or perform any duties such as this. 5. As long as you're taking opiate pain medications he should also be taking a stool softener such as Colace, Dulcolax, MiraLAX or prune juice, to help avoid constipation. Prescriptions: New hydrocodone-acetaminophen 5-325 mg tablet 1 tab PO Q6H PRN (Reason: pain) Qty: 10 0RF omeprazole 20 mg capsule,delayed release(DR/EC) 20 mg PO DAILY Qty: 30 0RF ondansetron 4 mg tablet,disintegrating 4 mg PO Q8H PRN (Reason: nausea and vomiting) Qty: 10 0RF No Action epinephrine [EpiPen] 0.3 mg/0.3 mL auto-injector 0.3 mg IM Q5-15M PRN (Reason: anaphylaxis) Qty: 2 0RF Rx Instructions: do not exceed 3 doses per episode. Proceed to ED immediately after first administration desog-e.estradiol/e.estradiol [Kariva (28)] 0.15-0.02 mgx21 /0.01 mg x 5 tablet 1 tab PO DAILY Qty: 84 3RF losartan 100 mg tablet 100 mg PO DAILY Qty: 90 3RF metoprolol succinate 25 mg tablet extended release 24 hr 25 mg PO DAILY Qty: 90 3RF fluoxetine [Prozac] 20 mg capsule 20 mg PO DAILY Qty: 90 3RF clonazepam 0.5 mg tablet 0.25 mg PO BID PRN (Reason: anxiety) Qty: 20 0RF dextroamphetamine-amphetamine [Adderall] 30 mg tablet 30 mg PO BID Qty: 60 0RF Rx Instructions: administer doses at least 4-6 hours apart dextroamphetamine-amphetamine [Adderall] 30 mg tablet 30 mg PO BID Qty: 60 0RF Rx Instructions: administer doses at least 4-6 hours apart dextroamphetamine-amphetamine [Adderall] 30 mg tablet 30 mg PO BID Qty: 60 0RF Rx Instructions: administer doses at least 4-6 hours apart ondansetron 4 mg tablet,disintegrating 4 mg PO Q8H PRN (Reason: nausea and vomiting) Qty: 20 0RF Referrals: Cosmo Baig MD [Primary Care Provider] - Stand Alone Forms: Patient Portal/API/Survey
[2024-07-26 14:00] VITALS: BP 160/111; PULSE 91; O2SAT 100
--- NOTE | 2024-07-26 14:17 | EKG_ITS ---
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
== END 2024-07-26 14:38 | disposition home or self-care (01) ==
PROVIDERS: Emergency Provider Emergency Medicine; PCP Family Medicine
DX: K29.70 Gastritis, unspecified, without bleeding (principal); R10.12 Left upper quadrant pain
CPT/HCPCS: 36415; 80053; 81003; 81015; 81025; 83690; 85025; 87077; 87086; 87147; 93005; 99283; 99284

== ENCOUNTER → 2024-09-26 15:33 | Outpatient (CLI) | payer OTHER, SELFPAY ==
[2024-09-26 16:16] LABS: Monotest Negative (Negative)
== END ==
PROVIDERS: PCP Family Medicine; Referring Provider Nurse Practitioner Family
DX: R59.9 Enlarged lymph nodes, unspecified (principal)
CPT/HCPCS: 86318

== ENCOUNTER → 2024-10-15 16:01 | Outpatient (CLI) | payer OTHER, SELFPAY ==
[2024-10-15 19:19] LABS: Influenza A - CEPHEID Flu A NEGATIVE (NEGATIVE); Influenza B - CEPHEID Flu B NEGATIVE (NEGATIVE); Respiratory Syncytial Virus Negative (Negative)
[2024-10-15 19:21] LABS: COVID-19 CEPHEID 4-PLEX PCR Negative (Negative)
== END ==
PROVIDERS: PCP Family Medicine; Visit Provider Physician Assistant
DX: R05.1 Acute cough (principal)
CPT/HCPCS: 0241U

== ENCOUNTER → 2024-10-15 16:10 | Outpatient (CLI) | payer OTHER, SELFPAY ==
[2024-10-15 17:27] LABS: Add Manual Diff / Slide Review NO; Basophils Absolute Auto 0 /uL (0-100); Basophils Percent Auto 0.8 % (0-2); Eosinophils Absolute Auto 200 /uL (0-450); Eosinophils Percent Auto 3.9 % (2-4); Hematocrit 41.4 % (36-46); Hemoglobin 14.4 g/dL (12.0-16.0); Lymphocytes Absolute Auto 2200 /uL (1100-4500); Lymphocytes Percent Auto 36.8 % (25-40); Mean Corpuscular HGB Conc 34.7 % (30-36); Mean Corpuscular Hemoglobin 32.2 PG (26-34); Mean Corpuscular Volume 92.9 fL (80-100); Monocytes Absolute Auto 400 /uL (0-900); Neutrophils Absolute Auto 3200 /uL (1500-7000); Neutrophils Percent Auto 51.5 % (50-75); Platelet Count 365 X10^3/uL (150-400); Red Blood Cell Count 4.45 X10^6/uL (4.0-5.2); White Blood Cell Count 6.1 X10^3/uL (4.5-11.0)
[2024-10-15 17:53] LABS: Alanine Aminotransferase 27 IU/L (<35); Albumin 4.8 g/dL (3.5-5.0); Albumin Globulin Ratio 1.6 (1.0-2.8); Alkaline Phosphatase 71 U/L (38-126); Aspartate Aminotransferase 31 IU/L (14-36); BUN Creatinine Ratio 12.2 (6-22); Bilirubin Total 0.3 mg/dL (0.2-1.3); Blood Urea Nitrogen 9 mg/dL (7-17); Calcium 9.4 mg/dL (8.4-10.2); Carbon Dioxide 27 mmol/L (22-32); Chloride 103 mmol/L (98-107); Estimated Glomerular Filt Rate > 60 mL/min (>60); Glucose 94 mg/dL (70-100); HEMOLYSIS < 15 (0-50); Potassium 3.7 mmol/L (3.4-5.1); Sodium 139 mmol/L (137-145); Total Protein 7.8 g/dL (6.3-8.2)
[2024-10-15 18:11] LABS: Vitamin D 25 Hydroxy (D3) 13.7 ng/mL (30.0-100.0)
[2024-10-15 18:24] LABS: TSH w/ Reflex to FT4 1.58 uIU/mL (0.47-4.68)
== END ==
PROVIDERS: PCP Family Medicine; Referring Provider Physician Assistant; Visit Provider Physician Assistant
DX: R53.82 Chronic fatigue, unspecified (principal); R05.1 Acute cough
CPT/HCPCS: 0241U; 36415; 80053; 82306; 84443; 85025

== ENCOUNTER → 2024-10-22 13:18 | Outpatient (CLI) | payer OTHER, SELFPAY ==
--- NOTE | 2024-10-22 13:19 | DI.US.S_ITS ---
PROCEDURE: US PELVIC LIMITED INDICATIONS: pea size lump at anus, upper right TECHNIQUE: Real-time transabdominal scanning was performed of the area of concern, with image documentation. COMPARISON: None. FINDINGS: Just superior to the anus, there is a 4 x 3 x 4 mm well-defined hypoechoic lesion, likely cystic. No vascularity seen. IMPRESSION: Small cystic lesion measuring 4 mm in the area concern of uncertain etiology. Possible epidermal inclusion cyst. Recommend clinical correlation and follow-up. If there is concern for growth, recommend repeat imaging. We strive to produce accurate, complete, and clear reports of imaging services. To assist us in improving patient care, this report was composed using standard report templates and voice recognition software. Therefore, it may contain abnormal punctuation, insertions and/or omissions. Occasional wrong-word or sound-alike substitutions may occur. Though we review the report and make efforts to correct it, we do recommend that the report be read carefully in proper context to recognize any text inaccuracies. Dictated by: Newton Krishna M.D. on 10/22/2024 at 19:48 Approved by: Newton Krishna M.D. on 10/22/2024 at 19:49
== END ==
PROVIDERS: PCP Family Medicine; Referring Provider Physician Assistant; Visit Provider Physician Assistant
DX: K62.89 Other specified diseases of anus and rectum (principal)
CPT/HCPCS: 76857

== ENCOUNTER → 2024-11-24 14:45 | Outpatient (CLI) | payer OTHER, SELFPAY ==
--- NOTE | 2024-11-24 14:51 | DI.RAD.S_ITS ---
PROCEDURE: XR LUMBAR SPINE 2-3V INDICATIONS: chronic back pain TECHNIQUE: 3 views of the lumbar spine were acquired. COMPARISON: None. FINDINGS: Bones: 5 [id number] vertebrae are present. There is normal bony alignment. No vertebral body compression fractures. No suspicious bony lesions. Soft tissues: Overlying bowel gas pattern is normal. No suspicious soft tissue calcifications. IMPRESSION: Normal alignment. No evidence of acute osseous abnormality. Dictated by: Galindo Staples M.D. on 11/24/2024 at 17:25 Approved by: Galindo Staples M.D. on 11/24/2024 at 17:27
[2024-11-24 16:36] LABS: Add Manual Diff / Slide Review NO; Basophils Absolute Auto 300 /uL (0-100); Basophils Percent Auto 2.1 % (0-2); Eosinophils Absolute Auto 100 /uL (0-450); Eosinophils Percent Auto 0.5 % (2-4); Hematocrit 41.9 % (36-46); Hemoglobin 14.3 g/dL (12.0-16.0); Lymphocytes Absolute Auto 1000 /uL (1100-4500); Lymphocytes Percent Auto 8.3 % (25-40); Mean Corpuscular HGB Conc 34.2 % (30-36); Mean Corpuscular Hemoglobin 31.7 PG (26-34); Mean Corpuscular Volume 92.8 fL (80-100); Monocytes Absolute Auto 600 /uL (0-900); Monocytes Percent Auto 5.2 % (3-14); Monotest Negative (Negative); Neutrophils Absolute Auto 10200 /uL (1500-7000); Neutrophils Percent Auto 83.9 % (50-75); Platelet Count 344 X10^3/uL (150-400); Red Blood Cell Count 4.52 X10^6/uL (4.0-5.2); Red Cell Distribution Width 12.7 % (11.6-14.8); White Blood Cell Count 12.2 X10^3/uL (4.5-11.0)
[2024-11-24 16:49] LABS: C-Reactive Protein Quant 5.2 mg/dL (<1.0); Rheumatoid Factor 12.6 IU/mL (<12.0)
[2024-11-24 17:10] LABS: Erythrocyte Sedimentation Rate 11 MM/HR (0-20)
[2024-11-24 17:36] LABS: Vitamin B12 471 pg/mL (239-931)
== END ==
LOC: RAD 14:50
PROVIDERS: PCP Family Medicine; Referring Provider Physician Assistant; Visit Provider Physician Assistant
DX: M54.50 Low back pain, unspecified (principal); R59.9 Enlarged lymph nodes, unspecified; G89.29 Other chronic pain
CPT/HCPCS: 36415; 72100; 82607; 85025; 85651; 86140; 86318; 86430

== ENCOUNTER → 2024-11-24 15:34 | Outpatient (CLI) | payer OTHER, SELFPAY ==
--- NOTE | 2024-11-24 15:34 | DI.US.S_ITS ---
PROCEDURE: US SOFT TISSUE HEAD AND NECK INDICATIONS: swelling / mass right side x 2 mos TECHNIQUE: Real-time scanning was performed of the neck region of interest, with image documentation. COMPARISON: None. FINDINGS: At the patient indicated palpable area of concern, normal appearing cervical lymph nodes are present. No suspicious soft tissue mass. IMPRESSION: Normal-appearing cervical lymph nodes. No suspicious soft tissue mass. Approved by: Virgil Villalobos M.D. on 11/24/2024 at 16:34
== END ==
LOC: US 15:34
PROVIDERS: PCP Family Medicine; Referring Provider Physician Assistant; Visit Provider Physician Assistant
DX: M54.50 Low back pain, unspecified (principal); R59.9 Enlarged lymph nodes, unspecified; G89.29 Other chronic pain
CPT/HCPCS: 36415; 72100; 76536; 82607; 85025; 85651; 86140; 86318; 86430

== ENCOUNTER → 2024-12-01 13:28 | Outpatient (CLI) | payer OTHER, SELFPAY ==
[2024-12-01 13:50] LABS: Add Manual Diff / Slide Review NO; Basophils Absolute Auto 100 /uL (0-100); Basophils Percent Auto 0.9 % (0-2); Eosinophils Absolute Auto 100 /uL (0-450); Eosinophils Percent Auto 1.9 % (2-4); Hematocrit 42.1 % (36-46); Hemoglobin 14.5 g/dL (12.0-16.0); Lymphocytes Absolute Auto 2400 /uL (1100-4500); Lymphocytes Percent Auto 36.3 % (25-40); Mean Corpuscular HGB Conc 34.5 % (30-36); Mean Corpuscular Hemoglobin 31.6 PG (26-34); Mean Corpuscular Volume 91.7 fL (80-100); Monocytes Absolute Auto 500 /uL (0-900); Monocytes Percent Auto 7.4 % (3-14); Neutrophils Absolute Auto 3600 /uL (1500-7000); Neutrophils Percent Auto 53.5 % (50-75); Platelet Count 469 X10^3/uL (150-400); Red Blood Cell Count 4.59 X10^6/uL (4.0-5.2); Red Cell Distribution Width 12.9 % (11.6-14.8); White Blood Cell Count 6.7 X10^3/uL (4.5-11.0)
[2024-12-01 14:41] LABS: Prolactin 20.6 ng/mL (3.0-18.6)
[2024-12-01 14:54] LABS: Cortisol AM (Before 10AM) 7.68 ug/dL (4.46-22.7)
[2024-12-01 15:30] LABS: Vitamin D 25 Hydroxy (D3) 46.8 ng/mL (30.0-100.0)
== END ==
PROVIDERS: PCP Family Medicine; Referring Provider Physician Assistant; Visit Provider Physician Assistant
DX: E55.9 Vitamin D deficiency, unspecified (principal); N64.52 Nipple discharge; Z80.3 Family history of malignant neoplasm of breast; R79.89 Other specified abnormal findings of blood chemistry; M54.9 Dorsalgia, unspecified; G89.29 Other chronic pain
CPT/HCPCS: 36415; 81374; 82024; 82306; 82533; 84146; 84402; 84403; 85025; 86038

== ENCOUNTER → 2024-12-07 15:03 | Outpatient (CLI) | payer OTHER, SELFPAY ==
--- NOTE | 2024-12-07 16:00 | DI.MRI.S_ITS ---
MR breast BI wo/w con: 12/07/2024. BI-RADS: 2 CLINICAL: 29-year old female for bilateral diagnostic breast MRI. Current reported family history of breast cancer: mother. Patient reports nonspecific right nipple discharge with pain for the past two years. Elevated prolactin noted on the referral. PRIOR EXAMS: No previous exam presently available for comparison. MRI TECHNIQUE: Bilateral breast MRI was performed on a 1.5 Nancy magnet using a dedicated breast coil with mild compression. Axial T1 and T2 STIR sequences were obtained. Dynamic contrast enhanced VIBRANT fat-suppressed sequences were obtained. Delayed sagittal high resolution or sagittal reconstructed isotropic sequence was also obtained. Subtraction images and maximum intensity projection images were obtained. The study was evaluated using [employer] software. Prohance was injected intravenously: 20 mL. FIBROGLANDULAR TISSUE Bilateral: B. Scattered fibroglandular tissue. BACKGROUND PARENCHYMAL ENHANCEMENT Bilateral: Mild symmetrical background parenchymal enhancement. BREAST FINDINGS Right: There is no suspicious MRI finding to account for patient's concern of pain/tenderness and nipple discharge. No suspicious mass, suspicious non-mass enhancement, or other concerning finding identified. Bilateral There are no abnormal axillary or internal mammary lymph nodes. There are multiple ectatic ducts. On non-contrast sequences these ducts show high signal intensity on T1-weighted sequences. This is compatible with benign proteinaceous debris. There is no suspicious mass or non-mass enhancement. IMPRESSION: * No evidence of malignancy with benign findings. RECOMMENDATIONS Right * Clinical follow-up is recommended for the patient's right nipple discharge and right breast pain. Further management of focal signs or symptoms should be based on the results of clinical evaluation. If there is clinically suspicious nipple discharge (unilateral, spontaneous, bloody and/or clear) or concerning symptom persists or progresses, further clinical evaluation and/or repeat imaging should be considered. Bilateral * Breast MRI screening in one year. Patient is considered high-risk due to family history of breast cancer. * Annual screening mammography in one year. OVERALL ASSESSMENT CATEGORY BI-RADS-2: Benign. ELECTRONICALLY SIGNED: Nela Hancock M.D. on 12/07/2024 at 06:07:05 PM PT Interpreting Station ID: [id number]
== END ==
PROVIDERS: PCP Family Medicine; Referring Provider Physician Assistant; Visit Provider Physician Assistant
DX: N64.52 Nipple discharge (principal); N60.42 Mammary duct ectasia of left breast; N60.41 Mammary duct ectasia of right breast; Z80.3 Family history of malignant neoplasm of breast
CPT/HCPCS: 77049; A9579

== ENCOUNTER → 2024-12-10 11:28 | Outpatient (CLI) | payer OTHER, SELFPAY ==
--- NOTE | 2024-12-10 11:29 | DI.MRI.S_ITS ---
PROCEDURE: MR BRAIN (PITUITARY) WWO CON INDICATIONS: elevated prolactin, decreased ACTs/Cortisol, nipple discharg TECHNIQUE: Noncontrast sagittal and axial FLAIR, axial gradient echo, axial diffusion and ADC through the brain. Thin-slice sagittal and coronal T1 spin echo, coronal T2 fast spin echo through the pituitary. After the administration contrast, optional dynamic coronal T1 spin echo, thin-slice coronal and sagittal T1 spin echo images through the pituitary fossa; axial and coronal and sagittal T1 spin echo with fat saturation through the brain. COMPARISON: None. FINDINGS: Image quality: Excellent. Pituitary Gland: Normal in appearance. No pituitary lesions are identified. CSF Spaces: Ventricles are normal in size and shape. Basal cisterns are patent. No extra-axial fluid collections. Brain: No intracranial bleeds or mass effects. No abnormal intracranial enhancement. Bazan-white matter interface is intact. Diffusion weighted images demonstrate no acute ischemic insults. Brainstem is normal. Normal intravascular flow voids are present. Skull and face: Calvarial marrow is normal in signal. Orbits appear normal. Sinuses: Sinuses and mastoids are clear. IMPRESSION: Pituitary gland is normal in appearance. No pituitary lesions are identified. Normal appearance of the brain. No acute intracranial abnormalities or abnormal intracranial enhancement. Dictated by: Newton Krishna M.D. on 12/10/2024 at 14:18 Approved by: Newton Krishna M.D. on 12/10/2024 at 14:25
== END ==
PROVIDERS: PCP Family Medicine; Referring Provider Physician Assistant; Visit Provider Physician Assistant
DX: E27.40 Unspecified adrenocortical insufficiency (principal); N64.52 Nipple discharge; R79.89 Other specified abnormal findings of blood chemistry; Z80.3 Family history of malignant neoplasm of breast
CPT/HCPCS: 70553; A9579